=== PATIENT | female | born 1985 | race American Indian/Alaskan Native ===

== ENCOUNTER 2017-11-07 05:24 | Inpatient (IN) | payer MEDICAID ==
[2017-11-07] MEDS ORDERED: Acetaminophen 500 MG Tab PO ONE (06:00)
[2017-11-07] MEDS ORDERED: cefOXitin 2 GM in Premix Bag 1 BAG IV ONE (06:00)
[2017-11-07] MEDS ORDERED: Gabapentin 300 MG Cap PO ONE (06:00)
[2017-11-07] MEDS ORDERED: Scopolamine 1.5 MG Transdermal Patch TOP SCH (06:00)
[2017-11-07] MEDS ORDERED: Celecoxib 200 MG Cap PO ONE (06:00)
[2017-11-07] MEDS ORDERED: Dextrose 5%-Lactated Ringers 1,000 ML IV SCH (06:00)
[2017-11-07] MEDS ORDERED: cefOXitin 2 GM Vial ONE (06:37)
[2017-11-07] MEDS ORDERED: Dexamethasone 4 MG/ML SDV ONE (06:56)
[2017-11-07] MEDS ORDERED: Ondansetron 4 MG/2 ML SDV ONE (06:56)
[2017-11-07] MEDS ORDERED: Propofol 200 MG/20 ML SDV ONE (06:56)
[2017-11-07] MEDS ORDERED: Succinylcholine/Normal Saline 200 MG/10 ML Syringe ONE (06:56)
[2017-11-07] MEDS ORDERED: Neostigmine Methylsulfate 1 MG/ML 5 ML Syringe ONE (06:56)
[2017-11-07] MEDS ORDERED: fentaNYL 250 MCG/5 ML SDV ONE ×2 (06:56→07:43)
[2017-11-07] MEDS ORDERED: Rocuronium 50 MG/5 ML Vial ONE ×2 (06:56→07:50)
[2017-11-07] MEDS ORDERED: FLU Vacc QS 2017-18 (36mos UP)/PF 60 MCG/0.5 ML Syringe IM ONE (07:00)
[2017-11-07] MEDS ORDERED: Lactated Ringers 1,000 ML ONE (07:25)
[2017-11-07] MEDS ORDERED: Lidocaine 2% 100 MG/5 ML Syringe IVPUSH ONE (07:45)
[2017-11-07] MEDS ORDERED: Ketamine 500 MG/5 ML MDV IV SCH (07:45)
[2017-11-07] MEDS ORDERED: Ropivacaine 60 ML, Dexamethasone 8 MG, EPINEPHrine 0.4 MG, Sodium Chloride 0.9% 17.6 ML NERVRT SCH ×4 (07:45)
[2017-11-07] MEDS ORDERED: fentaNYL 100 MCG/2 ML SDV ONE ×2 (08:41→08:57)
[2017-11-07] MEDS ORDERED: hydrOXYzine HCl 100 MG/2 ML SDV IM ONE (09:36)
[2017-11-07] MEDS ORDERED: fentaNYL 100 MCG/2 ML SDV IVPUSH ONE (09:36)
[2017-11-07] MEDS: Lidocaine 0.4%/D5W 2 GM/500 ML BAG IV SCH ×3 (10:30→23:48)
[2017-11-07] MEDS ORDERED: Insulin Aspart 100 Units/ML 3 ML Pen SUBCUT PRN (11:00)
[2017-11-07] MEDS ORDERED: diphenhydrAMINE 50 MG/ML SDV IVPUSH PRN (11:00)
[2017-11-07] MEDS ORDERED: Metoclopramide 10 MG/2 ML SDV IVPUSH PRN (11:00)
[2017-11-07] MEDS ORDERED: hydrOXYzine HCl 100 MG/2 ML SDV IM PRN (11:00)
[2017-11-07] MEDS ORDERED: Labetalol 20 MG/4 ML Syringe IVPUSH PRN (11:00)
[2017-11-07] MEDS ORDERED: Ondansetron 4 MG/2 ML SDV IVPUSH PRN (11:00)
[2017-11-07] MEDS: Pantoprazole 40 MG Vial IVPUSH SCH (11:47)
[2017-11-07] MEDS: cefOXitin 2 GM in Sodium Chloride 0.9% 50 ML IV SCH ×3 (11:48→23:48)
[2017-11-07] MEDS: Gabapentin 250 MG/5 ML Solution ML 470 ML Bottle PO SCH ×2 (14:20→21:18)
[2017-11-07] MEDS: Acetaminophen Soln 650 MG/20.3 ML UD Cup PO SCH ×2 (14:20→20:03)
[2017-11-07] MEDS ORDERED: MVI, Adult with Vitamin K 10 ML, Thiamine 200 MG, Chromium/Copper/Mang/Selen/Zn 1 ML in... IV SCH ×4 (16:00)
[2017-11-07] MEDS: Heparin Sodium 5,000 Units/ML Vial SUBCUT SCH (17:29)
[2017-11-07] MEDS: Dextrose 5%-Lactated Ringers 1,000 ML IV SCH (21:16)
[2017-11-08] MEDS ORDERED: Iohexol 647 MG/ML 50 ML SDV PO STA (02:18)
[2017-11-08] MEDS: Acetaminophen Soln 650 MG/20.3 ML UD Cup PO SCH ×4 (02:50→19:56)
[2017-11-08] MEDS: Dextrose 5%-Lactated Ringers 1,000 ML IV SCH (03:29)
[2017-11-08] MEDS: Heparin Sodium 5,000 Units/ML Vial SUBCUT SCH ×2 (05:15→18:01)
[2017-11-08] MEDS: cefOXitin 2 GM in Sodium Chloride 0.9% 50 ML IV SCH (05:36)
[2017-11-08] MEDS ORDERED: Ondansetron 4 MG Tab.DIS PO PRN (07:18)
[2017-11-08] MEDS ORDERED: Dextrose 5%-Lactated Ringers 1,000 ML IV SCH (07:30)
[2017-11-08] MEDS: Celecoxib 200 MG Cap PO SCH (07:57)
[2017-11-08] MEDS: SCOPOLAMINE PATCH CHECK TOP SCH (08:01)
[2017-11-08] MEDS: Gabapentin 250 MG/5 ML Solution ML 470 ML Bottle PO SCH ×3 (08:01→21:29)
--- NOTE | 2017-11-08 08:45 | CR ---
UGI wo KUB HISTORY: eval R -Y GBP FINDINGS: Limited upper GI series was obtained without fluoroscopy. Water-soluble contrast was admini stered orally. Immediate along with 15 minute delayed images were obtained. Small gastric pouch is de monstrated. Contrast passes readily through the gastrojejunostomy into loops of jejunum. No obstructi on is identified. There is no contrast extravasation. Surgical drain is noted left upper quadrant. IMPRESSION: No postoperative complication identified status post Pastor-en-Y gastric bypass.
[2017-11-08] MEDS ORDERED: FLU Vacc QS 2017-18 (36mos UP)/PF 60 MCG/0.5 ML Syringe IM ONE (10:00)
[2017-11-08] MEDS: Magnesium Sulfate/Water 2 GM in Premix Bag 1 BAG IV SCH ×3 (11:01→21:30)
[2017-11-08] MEDS: Pantoprazole 40 MG Vial IVPUSH SCH (12:04)
[2017-11-08] MEDS ORDERED: MVI, Adult with Vitamin K 10 ML, Thiamine 200 MG, Chromium/Copper/Mang/Selen/Zn 1 ML in... IV SCH ×4 (16:00)
--- NOTE | 2017-11-08 16:57 | PCM.SURGPN ---
- General Info Date of Service: 11/08/17 Date of Surgery/Procedure: 11/07/17 POD#: 1 Post-Op Diagnosis: S/P Roma-en-Y, paraesophageal hernia repair and small bowel resection Admission Diagnosis/Problem: Roma-en-Y gastrojejunostomy Functional Status: Reports: Pain Controlled Pain Score: 4 - Review of Systems General: Reports: No Symptoms HEENT: Reports: No Symptoms Pulmonary: Reports: No Symptoms Cardiovascular: Reports: No Symptoms Gastrointestinal: Reports: Abdominal Pain, Other (No nausea, vomiting, constipation or diarrhea ) Genitourinary: Reports: No Symptoms Neurological: Reports: No Symptoms Psychiatric: Reports: No Symptoms - Patient Data Vitals - Most Recent: Last Vital Signs Temp 36.9 C 11/08/17 15:53 Pulse 78 11/08/17 15:53 Resp 18 11/08/17 15:53 BP 133/73 11/08/17 15:53 Pulse Ox 95 11/08/17 15:53 Weight - Most Recent: 146.692 kg I&O - Last 24 Hours: Intake & Output 11/08/17 11/08/17 11/08/17 06:59 14:59 22:59 Intake Total 1949 1288 50 Output Total 1330 1030 Balance 619 258 50 Lab Results Last 24 Hrs: Laboratory Results - last 24 hr 11/08/17 11/08/17 Range/Units 04:31 04:31 Sodium 141 (140-148) mmol/L Potassium 4.1 (3.6-5.2) mmol/L Chloride 106 (100-108) mmol/L Carbon Dioxide 26 (21-32) mmol/L Anion Gap 9.5 (5.0-14.0) mmol/L BUN 7 (7-18) mg/dL Creatinine 0.7 (0.6-1.0) mg/dL Est Cr Clr Drug Dosing 117.48 mL/min Estimated GFR (MDRD) > 60 (>60) Glucose 142 H (74-106) mg/dL Hemoglobin A1c 5.1 (4.5-6.2) % Calcium 8.4 L (8.5-10.1) mg/dL Phosphorus 2.6 (2.5-4.9) mg/dL Magnesium 1.7 L (1.8-2.4) mg/dL Med Orders - Current: Current Medications Acetaminophen (Tylenol) 650 mg PO Q6H [facility] Last Admin: 11/08/17 14:43 Dose: 650 mg Celecoxib (Celebrex) 200 mg PO DAILY@0800 [facility] Last Admin: 11/08/17 07:57 Dose: 200 mg Cyanocobalamin (Vitamin B12) 1,000 mcg IM ONETIME ONE Stop: 11/09/17 09:01 Diphenhydramine HCl (Benadryl) 25 - 50 mg IVPUSH Q4H PRN PRN Reason: ITCHING Gabapentin (Neurontin) 300 mg PO TID [facility] Last Admin: 11/08/17 14:43 Dose: 300 mg Heparin Sodium (Porcine) (Heparin Sodium) 5,000 units SUBCUT Q12H [facility] Last Admin: 11/08/17 05:15 Dose: 5,000 units Hydroxyzine HCl (Vistaril) 75 - 100 mg IM Q4H PRN PRN Reason: pain Dextrose/Lactated Ringer's (Dextrose 5%-Lactated Ringers) 1,000 mls @ 100 mls/ hr IV ASDIRECTED [facility] Magnesium Sulfate 2 gm/ Premix 50 mls @ 25 mls/hr IV Q6H [facility] Stop: 11/11/17 05:59 Last Admin: 11/08/17 16:46 Dose: 25 mls/hr Multivitamins/Minerals 10 ml/Thiamine HCl 200 mg/ Chromium/Copper/Manganese/ Seleni/Zn 1 ml/ Dextrose/Lactated Ringer's 1,013 mls @ 100 mls/hr IV DAILY@ 1600 [facility] Last Admin: 11/08/17 16:46 Dose: 100 mls/hr Insulin Aspart (Novolog) 0 unit SUBCUT Q6H PRN; Protocol PRN Reason: PER CORRECTIONAL DOSING Labetalol HCl (Normodyne) 5 - 15 mg IVPUSH Q1H PRN PRN Reason: SBP over 160 OR DBP over 95 Metoclopramide HCl (Reglan) 10 mg IVPUSH Q6H PRN PRN Reason: NAUSEA NOT CONTROL BY ZOFRAN Miscellaneous Information (Remove Patch) 1 ea TRDERM ONETIME ONE Stop: 11/09/17 10:01 Scopolamine Patch (Check) 1 each TOP DAILY [facility] Stop: 11/09/17 11:01 Last Admin: 11/08/17 08:01 Dose: Not Given Ondansetron HCl (Zofran) 4 mg IVPUSH Q4H PRN PRN Reason: Nausea/Vomiting Ondansetron HCl (Zofran Odt) 4 mg PO Q4H PRN PRN Reason: Nausea/Vomiting Pantoprazole Sodium (Protonix Iv) 40 mg IVPUSH Q24H [facility] Last Admin: 11/08/17 12:04 Dose: 40 mg Scopolamine (Transderm-Scop) 1.5 mg TOP Q72H [facility] Stop: 11/09/17 10:00 Last Admin: 11/07/17 05:53 Dose: 1.5 mg Discontinued Medications Acetaminophen (Tylenol Extra Strength) 1,000 mg PO ONETIME ONE Stop: 11/07/17 06:01 Last Admin: 11/07/17 05:53 Dose: 1,000 mg Cefoxitin Sodium (Mefoxin) Confirm Administered Dose 2 gm .ROUTE .STK-MED ONE Stop: 11/07/17 06:38 Last Admin: 11/07/17 07:57 Dose: 2 gm Celecoxib (Celebrex) 200 mg PO ONETIME ONE Stop: 11/07/17 06:01 Last Admin: 11/07/17 05:52 Dose: 200 mg Ropivacaine 60 ml/Dexamethasone 8 mg/Epinephrine HCl 0.4 mg/ Sodium Chloride 17.6 ml 0 ml NERVRT ASDIRECTED [facility] Last Admin: 11/07/17 07:42 Dose: 100 syringe Dexamethasone (Dexamethasone) Confirm Administered Dose 4 mg .ROUTE .STK-MED ONE Stop: 11/07/17 06:57 Fentanyl (Sublimaze) Confirm Administered Dose 250 mcg .ROUTE .STK-MED ONE Stop: 11/07/17 06:57 Fentanyl (Sublimaze) Confirm Administered Dose 250 mcg .ROUTE .STK-MED ONE Stop: 11/07/17 07:44 Fentanyl (Sublimaze) Confirm Administered Dose 100 mcg .ROUTE .STK-MED ONE Stop: 11/07/17 08:42 Fentanyl (Sublimaze) Confirm Administered Dose 100 mcg .ROUTE .STK-MED ONE Stop: 11/07/17 08:58 Fentanyl (Sublimaze) 100 mcg IVPUSH ONETIME ONE Stop: 11/07/17 09:37 Last Admin: 11/07/17 09:45 Dose: 100 mcg Gabapentin (Neurontin) 300 mg PO ONETIME ONE Stop: 11/07/17 06:01 Last Admin: 11/07/17 05:53 Dose: 300 mg Glycopyrrolate () Confirm Administered Dose 1 mg .ROUTE .STK-MED ONE Stop: 11/07/17 06:57 Hydroxyzine HCl (Vistaril) 100 mg IM ONETIME ONE Stop: 11/07/17 09:37 Last Admin: 11/07/17 09:46 Dose: 100 mg Cefoxitin Sodium 2 gm/ Premix 20 mls @ 400 mls/hr IV ONETIME ONE Stop: 11/07/17 06:02 Last Admin: 11/07/17 07:03 Dose: 400 mls/hr Dextrose/Lactated Ringer's (Dextrose 5%-Lactated Ringers) 1,000 mls @ 100 mls/ hr IV ASDIRECTED [facility] Last Admin: 11/07/17 06:42 Dose: 100 mls/hr Lidocaine HCl/Dextrose (Lidocaine 2 Gm/D5w 500 Ml) 2 gm in 500 mls @ 30 mls/hr IV .[id number] [facility] PRN Reason: 2 MG/MIN Stop: 11/08/17 10:00 Last Admin: 11/07/17 23:48 Dose: 2 mg/min, 30 mls/hr Ketamine HCl 100 mg/ Sodium (Chloride) 100 mls @ 19.77 mls/hr IV ASDIRECTED [facility] PRN Reason: 5 MCG/KG/MIN Lactated Ringer's (Ringers, Lactated) Confirm Administered Dose 1,000 mls @ as directed .ROUTE .STK-MED ONE Stop: 11/07/17 07:26 Dextrose/Lactated Ringer's (Dextrose 5%-Lactated Ringers) 1,000 mls @ 175 mls/ hr IV ASDIRECTED [facility] Last Admin: 11/08/17 03:29 Dose: 175 mls/hr Multivitamins/Minerals 10 ml/Thiamine HCl 200 mg/ Chromium/Copper/Manganese/ Seleni/Zn 1 ml/ Dextrose/Lactated Ringer's 1,013 mls @ 175 mls/hr IV DAILY@ 1600 [facility] Last Admin: 11/07/17 15:09 Dose: 175 mls/hr Cefoxitin Sodium 2 gm/ Sodium (Chloride) 50 mls @ 100 mls/hr IV Q6H [facility] Stop: 11/08/17 06:59 Last Admin: 11/08/17 05:36 Dose: 100 mls/hr Influenza Virus Vaccine (Fluzone Quad [id number]) 60 mcg IM .ONCE ONE Stop: 11/08/17 10:01 Last Admin: 11/08/17 11:00 Dose: 60 mcg Iohexol (Omnipaque-300) 50 ml PO .ASDIRECTED STA Stop: 11/08/17 02:19 Last Admin: 11/08/17 02:28 Dose: 50 ml Ketamine HCl (Ketalar) 30 mg IV ASDIRECTED [facility] Lidocaine HCl (Xylocaine 2%) 145 mg IVPUSH ONETIME ONE Stop: 11/07/17 07:46 Last Admin: 11/07/17 11:41 Dose: Not Given Neostigmine Methylsulfate (Neostigmine) Confirm Administered Dose 5 mg .ROUTE .STK-MED ONE Stop: 11/07/17 06:57 Ondansetron HCl (Zofran) Confirm Administered Dose 4 mg .ROUTE .STK-MED ONE Stop: 11/07/17 06:57 Propofol (Diprivan 20 Ml) Confirm Administered Dose 200 mg .ROUTE .STK-MED ONE Stop: 11/07/17 06:57 Rocuronium Dawson (Zemuron) Confirm Administered Dose 50 mg .ROUTE .STK-MED ONE Stop: 11/07/17 06:57 Rocuronium Dawson (Zemuron) Confirm Administered Dose 50 mg .ROUTE .STK-MED ONE Stop: 11/07/17 07:51 Succinylcholine Chloride (Succinylcholine In Ns Pf) Confirm Administered Dose 200 mg .ROUTE .STK-MED ONE Stop: 11/07/17 06:57 - Exam Wound/Incisions: Healing Well General: Alert, Oriented, No Acute Distress Neck: Supple, Trachea Midline, No JVD Lungs: Clear to Auscultation Cardiovascular: Regular Rate, Regular Rhythm GI/Abdominal Exam: Soft, No Distention, No Mass (No bowel sounds appreciated. No guarding or rebound tenderness ), Tender Skin: Warm, Dry, Intact Neurological: No New Focal Deficit Psy/Mental Status: Alert, Normal Affect, Normal Mood - Problem List Review Problem List Initiated/Reviewed/Updated: Yes - My Orders Last 24 Hours: Active Orders 24 hr Category Date Time Status Communication Order [RC] ASDIRECTED Care 11/09/17 04:00 Active May Shower [RC] ASDIRECTED Care 11/08/17 07:18 Active Bariatric Diet [DIET] Diet 11/08/17 Breakfast Active Celecoxib [CeleBREX] Med 11/08/17 08:00 Active 200 mg PO DAILY@0800 Cyanocobalamin (Vitamin B12) [Vitamin B12] Med 11/09/17 09:00 Once 1,000 mcg IM ONETIME ONE Dextrose 5%-Lactated Ringers 1,000 ml Med 11/08/17 07:30 Active IV ASDIRECTED Heparin Sodium Med 11/07/17 18:00 Active 5,000 units SUBCUT Q12H [facility], Adult with Vitamin K [Infuvite Adult] 10 ml Med 11/08/17 16:00 Active Thiamine [Vitamin B-1] 200 mg Chromium/Copper/Hair/Selen/Zn [Multitrace-5 Concentrate ] 1 ml Dextrose 5%-Lactated Ringers 1,000 ml IV DAILY@1600 Magnesium Sulfate/Water [Magnesium Sulfate 2 GM in Med 11/08/17 10:00 Active Water 50 ML] 2 gm Premix Bag 1 bag IV Q6H Ondansetron [Zofran ODT] Med 11/08/17 07:18 Active 4 mg PO Q4H PRN Remove Patch Med 11/09/17 10:00 Once 1 ea TRDERM ONETIME ONE Convert IV to Saline Lock [OM.PC] Routine Oth 11/08/17 07:18 Ordered Oral Care [OM.PC] BID Oth 11/08/17 11:00 Ordered Medication Orders Acetaminophen (Tylenol) 650 mg PO Q6H [facility] Last Admin: 11/08/17 14:43 Dose: 650 mg Admin: 11/08/17 07:57 Dose: 650 mg Admin: 11/08/17 02:50 Dose: 650 mg Admin: 11/07/17 20:03 Dose: 650 mg Admin: 11/07/17 14:20 Dose: 650 mg Celecoxib (Celebrex) 200 mg PO DAILY@0800 [facility] Last Admin: 11/08/17 07:57 Dose: 200 mg Cyanocobalamin (Vitamin B12) 1,000 mcg IM ONETIME ONE Stop: 11/09/17 09:01 Diphenhydramine HCl (Benadryl) 25 - 50 mg IVPUSH Q4H PRN PRN Reason: ITCHING Gabapentin (Neurontin) 300 mg PO TID [facility] Last Admin: 11/08/17 14:43 Dose: 300 mg Admin: 11/08/17 08:01 Dose: 300 mg Admin: 11/07/17 21:18 Dose: 300 mg Admin: 11/07/17 14:20 Dose: 300 mg Heparin Sodium (Porcine) (Heparin Sodium) 5,000 units SUBCUT Q12H [facility] Last Admin: 11/08/17 05:15 Dose: 5,000 units Admin: 11/07/17 17:29 Dose: 5,000 units Hydroxyzine HCl (Vistaril) 75 - 100 mg IM Q4H PRN PRN Reason: pain Dextrose/Lactated Ringer's (Dextrose 5%-Lactated Ringers) 1,000 mls @ 100 mls/ hr IV ASDIRECTED [facility] Magnesium Sulfate 2 gm/ Premix 50 mls @ 25 mls/hr IV Q6H [facility] Stop: 11/11/17 05:59 Last Admin: 11/08/17 16:46 Dose: 25 mls/hr Infusion: 11/08/17 13:01 Dose: 25 mls/hr Admin: 11/08/17 11:01 Dose: 25 mls/hr Multivitamins/Minerals 10 ml/Thiamine HCl 200 mg/ Chromium/Copper/Manganese/ Seleni/Zn 1 ml/ Dextrose/Lactated Ringer's 1,013 mls @ 100 mls/hr IV DAILY@ 1600 [facility] Last Admin: 11/08/17 16:46 Dose: 100 mls/hr Insulin Aspart (Novolog) 0 unit SUBCUT Q6H PRN; Protocol PRN Reason: PER CORRECTIONAL DOSING Labetalol HCl (Normodyne) 5 - 15 mg IVPUSH Q1H PRN PRN Reason: SBP over 160 OR DBP over 95 Metoclopramide HCl (Reglan) 10 mg IVPUSH Q6H PRN PRN Reason: NAUSEA NOT CONTROL BY ZOFRAN Miscellaneous Information (Remove Patch) 1 ea TRWAYNEM ONETIME ONE Stop: 11/09/17 10:01 Scopolamine Patch (Check) 1 each TOP DAILY [facility] Stop: 11/09/17 11:01 Last Admin: 11/08/17 08:01 Dose: Not Given Ondansetron HCl (Zofran) 4 mg IVPUSH Q4H PRN PRN Reason: Nausea/Vomiting Ondansetron HCl (Zofran Odt) 4 mg PO Q4H PRN PRN Reason: Nausea/Vomiting Pantoprazole Sodium (Protonix Iv) 40 mg IVPUSH Q24H [facility] Last Admin: 11/08/17 12:04 Dose: 40 mg Admin: 11/07/17 11:47 Dose: 40 mg Scopolamine (Transderm-Scop) 1.5 mg TOP Q72H [facility] Stop: 11/09/17 10:00 Last Admin: 11/07/17 05:53 Dose: 1.5 mg - Plan Plan (Free Text/Narrative):: Fabiola Gonzales is a 31 year old female with a morbid obesity (BMI 49) who is S/P roma-en-y, small bowel resection and closure of her hiatal paraesphogeal hernia. Her pain is under control. She is tolerating her feedings well without nausea or vomiting. She has been unable to pass gas or stool at this point. She has been having some mild tenderness to her abdomen that she currently rates at a 4/10. However, she feels her pain is well controlled with her pain medications. She has no concerns or questions at this time. # Abdominal pain- related to her surgery and incisions. She denied any shoulder pain or severe abdominal pain. She states that she does not feel distended. - Continue Tylenol 650 mg Po Q6hr PRN # Hypomagnesia- per morning labs the patient was found to have a low magnesium at 1.7. Will replace - IV mag sulfate at 25ml/hr Q6hr - will recheck lab at outpatient clinic # Paralytic ileus- there were no bowel sounds appreciated on exam and the patient denied any gas or stool passage. Most likely due to post operative ileus , which should resolve in a day or two. This is exacerbated by her limited step 1 diet due to the gastric bypass. Will make sure she passes gas prior to discharge. An Upper Gi study was done today with was completely benign without any signs of obstruction. Will continue to monitor the patient for increased abdominal pain, fever, intractable vomiting and changes in her progression. E.N.E.R.G.Y protocol - D/c lidocaine today - D/c scopolomine patch today - Continue 300mg POD TID gabapentin - Continue Celebrex 200 mg - Continue IV Protonix 40mg Q24hrs - 1000 mcg B12 - Contiue Infuvite - Dietary consulted, thank you! VTE PPX- 5000 units heparin Q12 hours. Pt advised to continue moving around. Pneumonia PPX- Pt advised to walk around and use incentive spirometry 10 times per hour Code status: full Fluids: 100 ml/hr Diet: Advance pt to step 2 diet Nausea: Zofran Q4hr or [place] Q6hr PRN Dispo: The patient will most likely go home tomorrow pending her progression this evening.
[2017-11-09] MEDS: Acetaminophen Soln 650 MG/20.3 ML UD Cup PO SCH ×2 (02:23→07:12)
[2017-11-09 02:37] VITALS: BP 132/77
[2017-11-09] MEDS: Magnesium Sulfate/Water 2 GM in Premix Bag 1 BAG IV SCH (04:04)
[2017-11-09] MEDS: Heparin Sodium 5,000 Units/ML Vial SUBCUT SCH (05:26)
[2017-11-09] MEDS: Celecoxib 200 MG Cap PO SCH (07:12)
--- NOTE | 2017-11-09 07:27 | PCM.SURGPN ---
- General Info Date of Service: 11/09/17 Date of Surgery/Procedure: 11/07/17 POD#: 2 Post-Op Diagnosis: S/p Roma-En-Y and closure of her paraesophageal hiatal hernia Admission Diagnosis/Problem: Roma-en-Y gastrojejunostomy Functional Status: Reports: Pain Controlled Pain Score: 2 - Review of Systems General: Reports: No Symptoms Pulmonary: Reports: No Symptoms Cardiovascular: Reports: No Symptoms Gastrointestinal: Reports: Abdominal Pain (11/05 ) Genitourinary: Reports: No Symptoms Skin: Reports: No Symptoms Neurological: Reports: No Symptoms - Patient Data Vitals - Most Recent: Last Vital Signs Temp 36.6 C 11/09/17 02:35 Pulse 84 11/09/17 02:35 Resp 16 11/09/17 02:35 BP 132/77 11/09/17 02:35 Pulse Ox 96 11/09/17 02:35 Weight - Most Recent: 146.692 kg I&O - Last 24 Hours: Intake & Output 11/08/17 11/09/17 11/09/17 22:59 06:59 14:59 Intake Total 860 1433 Output Total 400 550 Balance 460 883 Med Orders - Current: Current Medications Acetaminophen (Tylenol) 650 mg PO Q6H [facility] Last Admin: 11/09/17 02:23 Dose: 650 mg Celecoxib (Celebrex) 200 mg PO DAILY@0800 [facility] Last Admin: 11/08/17 07:57 Dose: 200 mg Cyanocobalamin (Vitamin B12) 1,000 mcg IM ONETIME ONE Stop: 11/09/17 09:01 Diphenhydramine HCl (Benadryl) 25 - 50 mg IVPUSH Q4H PRN PRN Reason: ITCHING Gabapentin (Neurontin) 300 mg PO TID [facility] Last Admin: 11/08/17 21:29 Dose: 300 mg Heparin Sodium (Porcine) (Heparin Sodium) 5,000 units SUBCUT Q12H [facility] Last Admin: 11/09/17 05:26 Dose: 5,000 units Hydroxyzine HCl (Vistaril) 75 - 100 mg IM Q4H PRN PRN Reason: pain Dextrose/Lactated Ringer's (Dextrose 5%-Lactated Ringers) 1,000 mls @ 100 mls/ hr IV ASDIRECTED [facility] Last Admin: 11/09/17 02:38 Dose: 100 mls/hr Magnesium Sulfate 2 gm/ Premix 50 mls @ 25 mls/hr IV Q6H [facility] Stop: 11/11/17 05:59 Last Admin: 11/09/17 04:04 Dose: 25 mls/hr Multivitamins/Minerals 10 ml/Thiamine HCl 200 mg/ Chromium/Copper/Manganese/ Seleni/Zn 1 ml/ Dextrose/Lactated Ringer's 1,013 mls @ 100 mls/hr IV DAILY@ 1600 [facility] Last Admin: 11/08/17 16:46 Dose: 100 mls/hr Insulin Aspart (Novolog) 0 unit SUBCUT Q6H PRN; Protocol PRN Reason: PER CORRECTIONAL DOSING Labetalol HCl (Normodyne) 5 - 15 mg IVPUSH Q1H PRN PRN Reason: SBP over 160 OR DBP over 95 Metoclopramide HCl (Reglan) 10 mg IVPUSH Q6H PRN PRN Reason: NAUSEA NOT CONTROL BY ZOFRAN Miscellaneous Information (Remove Patch) 1 ea [place] ONETIME ONE Stop: 11/09/17 10:01 Scopolamine Patch (Check) 1 each TOP DAILY [facility] Stop: 11/09/17 11:01 Last Admin: 11/08/17 08:01 Dose: Not Given Ondansetron HCl (Zofran) 4 mg IVPUSH Q4H PRN PRN Reason: Nausea/Vomiting Ondansetron HCl (Zofran Odt) 4 mg PO Q4H PRN PRN Reason: Nausea/Vomiting Pantoprazole Sodium (Protonix Iv) 40 mg IVPUSH Q24H [facility] Last Admin: 11/08/17 12:04 Dose: 40 mg Scopolamine (Transderm-Scop) 1.5 mg TOP Q72H [facility] Stop: 11/09/17 10:00 Last Admin: 11/07/17 05:53 Dose: 1.5 mg Discontinued Medications Acetaminophen (Tylenol Extra Strength) 1,000 mg PO ONETIME ONE Stop: 11/07/17 06:01 Last Admin: 11/07/17 05:53 Dose: 1,000 mg Cefoxitin Sodium (Mefoxin) Confirm Administered Dose 2 gm .ROUTE .STK-MED ONE Stop: 11/07/17 06:38 Last Admin: 11/07/17 07:57 Dose: 2 gm Celecoxib (Celebrex) 200 mg PO ONETIME ONE Stop: 11/07/17 06:01 Last Admin: 11/07/17 05:52 Dose: 200 mg Ropivacaine 60 ml/Dexamethasone 8 mg/Epinephrine HCl 0.4 mg/ Sodium Chloride 17.6 ml 0 ml NERVRT ASDIRECTED [facility] Last Admin: 11/07/17 07:42 Dose: 100 syringe Dexamethasone (Dexamethasone) Confirm Administered Dose 4 mg .ROUTE .STK-MED ONE Stop: 11/07/17 06:57 Fentanyl (Sublimaze) Confirm Administered Dose 250 mcg .ROUTE .STK-MED ONE Stop: 11/07/17 06:57 Fentanyl (Sublimaze) Confirm Administered Dose 250 mcg .ROUTE .STK-MED ONE Stop: 11/07/17 07:44 Fentanyl (Sublimaze) Confirm Administered Dose 100 mcg .ROUTE .STK-MED ONE Stop: 11/07/17 08:42 Fentanyl (Sublimaze) Confirm Administered Dose 100 mcg .ROUTE .STK-MED ONE Stop: 11/07/17 08:58 Fentanyl (Sublimaze) 100 mcg IVPUSH ONETIME ONE Stop: 11/07/17 09:37 Last Admin: 11/07/17 09:45 Dose: 100 mcg Gabapentin (Neurontin) 300 mg PO ONETIME ONE Stop: 11/07/17 06:01 Last Admin: 11/07/17 05:53 Dose: 300 mg Glycopyrrolate () Confirm Administered Dose 1 mg .ROUTE .STK-MED ONE Stop: 11/07/17 06:57 Hydroxyzine HCl (Vistaril) 100 mg IM ONETIME ONE Stop: 11/07/17 09:37 Last Admin: 11/07/17 09:46 Dose: 100 mg Cefoxitin Sodium 2 gm/ Premix 20 mls @ 400 mls/hr IV ONETIME ONE Stop: 11/07/17 06:02 Last Admin: 11/07/17 07:03 Dose: 400 mls/hr Dextrose/Lactated Ringer's (Dextrose 5%-Lactated Ringers) 1,000 mls @ 100 mls/ hr IV ASDIRECTED [facility] Last Admin: 11/07/17 06:42 Dose: 100 mls/hr Lidocaine HCl/Dextrose (Lidocaine 2 Gm/D5w 500 Ml) 2 gm in 500 mls @ 30 mls/hr IV .[id number] [facility] PRN Reason: 2 MG/MIN Stop: 11/08/17 10:00 Last Admin: 11/07/17 23:48 Dose: 2 mg/min, 30 mls/hr Ketamine HCl 100 mg/ Sodium (Chloride) 100 mls @ 19.77 mls/hr IV ASDIRECTED [facility] PRN Reason: 5 MCG/KG/MIN Lactated Ringer's (Ringers, Lactated) Confirm Administered Dose 1,000 mls @ as directed .ROUTE .STK-MED ONE Stop: 11/07/17 07:26 Dextrose/Lactated Ringer's (Dextrose 5%-Lactated Ringers) 1,000 mls @ 175 mls/ hr IV ASDIRECTED [facility] Last Admin: 11/08/17 03:29 Dose: 175 mls/hr Multivitamins/Minerals 10 ml/Thiamine HCl 200 mg/ Chromium/Copper/Manganese/ Seleni/Zn 1 ml/ Dextrose/Lactated Ringer's 1,013 mls @ 175 mls/hr IV DAILY@ 1600 [facility] Last Admin: 11/07/17 15:09 Dose: 175 mls/hr Cefoxitin Sodium 2 gm/ Sodium (Chloride) 50 mls @ 100 mls/hr IV Q6H [facility] Stop: 11/08/17 06:59 Last Admin: 11/08/17 05:36 Dose: 100 mls/hr Influenza Virus Vaccine (Fluzone Quad [id number]) 60 mcg IM .ONCE ONE Stop: 11/08/17 10:01 Last Admin: 11/08/17 11:00 Dose: 60 mcg Iohexol (Omnipaque-300) 50 ml PO .ASDIRECTED [facility] Stop: 11/08/17 02:19 Last Admin: 11/08/17 02:28 Dose: 50 ml Ketamine HCl (Ketalar) 30 mg IV ASDIRECTED [facility] Lidocaine HCl (Xylocaine 2%) 145 mg IVPUSH ONETIME ONE Stop: 11/07/17 07:46 Last Admin: 11/07/17 11:41 Dose: Not Given Neostigmine Methylsulfate (Neostigmine) Confirm Administered Dose 5 mg .ROUTE .STK-MED ONE Stop: 11/07/17 06:57 Ondansetron HCl (Zofran) Confirm Administered Dose 4 mg .ROUTE .STK-MED ONE Stop: 11/07/17 06:57 Propofol (Diprivan 20 Ml) Confirm Administered Dose 200 mg .ROUTE .STK-MED ONE Stop: 11/07/17 06:57 Rocuronium [place] (Zemuron) Confirm Administered Dose 50 mg .ROUTE .STK-MED ONE Stop: 11/07/17 06:57 Rocuronium [place] (Zemuron) Confirm Administered Dose 50 mg .ROUTE .STK-MED ONE Stop: 11/07/17 07:51 Succinylcholine Chloride (Succinylcholine In Ns Pf) Confirm Administered Dose 200 mg .ROUTE .STK-MED ONE Stop: 11/07/17 06:57 - Exam Wound/Incisions: Healing Well General: Alert, Oriented, Cooperative, No Acute Distress GI/Abdominal Exam: Normal Bowel Sounds (soft but audible), No Distention, No Mass, Tender, Other (no guarding or rebound tenderness) Skin: Warm, Dry, Intact Neurological: No New Focal Deficit Psy/Mental Status: Alert, Normal Affect, Normal Mood - Problem List Review Problem List Initiated/Reviewed/Updated: Yes - My Orders Last 24 Hours: Active Orders 24 hr Category Date Time Status Communication Order [RC] ASDIRECTED Care 11/09/17 04:00 Active May Shower [RC] ASDIRECTED Care 11/08/17 07:18 Active Bariatric Diet [DIET] Diet 11/08/17 Breakfast Active Celecoxib [CeleBREX] Med 11/08/17 08:00 Active 200 mg PO DAILY@0800 Cyanocobalamin (Vitamin B12) [Vitamin B12] Med 11/09/17 09:00 Once 1,000 mcg IM ONETIME ONE Dextrose 5%-Lactated Ringers 1,000 ml Med 11/08/17 07:30 Active IV ASDIRECTED [facility], Adult with Vitamin K [Infuvite Adult] 10 ml Med 11/08/17 16:00 Active Thiamine [Vitamin B-1] 200 mg Chromium/Copper/Hair/Selen/Zn [Multitrace-5 Concentrate ] 1 ml Dextrose 5%-Lactated Ringers 1,000 ml IV DAILY@1600 Magnesium Sulfate/Water [Magnesium Sulfate 2 GM in Med 11/08/17 10:00 Active Water 50 ML] 2 gm Premix Bag 1 bag IV Q6H Ondansetron [Zofran ODT] Med 11/08/17 07:18 Active 4 mg PO Q4H PRN Remove Patch Med 11/09/17 10:00 Once 1 ea TRDERM ONETIME ONE Convert IV to Saline Lock [OM.PC] Routine Oth 11/08/17 07:18 Ordered Oral Care [OM.PC] BID Oth 11/08/17 11:00 Ordered Medication Orders Acetaminophen (Tylenol) 650 mg PO Q6H [facility] Last Admin: 11/09/17 02:23 Dose: 650 mg Admin: 11/08/17 19:56 Dose: 650 mg Admin: 11/08/17 14:43 Dose: 650 mg Admin: 11/08/17 07:57 Dose: 650 mg Admin: 11/08/17 02:50 Dose: 650 mg Admin: 11/07/17 20:03 Dose: 650 mg Admin: 11/07/17 14:20 Dose: 650 mg Celecoxib (Celebrex) 200 mg PO DAILY@0800 [facility] Last Admin: 11/08/17 07:57 Dose: 200 mg Cyanocobalamin (Vitamin B12) 1,000 mcg IM ONETIME ONE Stop: 11/09/17 09:01 Diphenhydramine HCl (Benadryl) 25 - 50 mg IVPUSH Q4H PRN PRN Reason: ITCHING Gabapentin (Neurontin) 300 mg PO TID [facility] Last Admin: 11/08/17 21:29 Dose: 300 mg Admin: 11/08/17 14:43 Dose: 300 mg Admin: 11/08/17 08:01 Dose: 300 mg Admin: 11/07/17 21:18 Dose: 300 mg Admin: 11/07/17 14:20 Dose: 300 mg Heparin Sodium (Porcine) (Heparin Sodium) 5,000 units SUBCUT Q12H [facility] Last Admin: 11/09/17 05:26 Dose: 5,000 units Admin: 11/08/17 18:01 Dose: 5,000 units Admin: 11/08/17 05:15 Dose: 5,000 units Admin: 11/07/17 17:29 Dose: 5,000 units Hydroxyzine HCl (Vistaril) 75 - 100 mg IM Q4H PRN PRN Reason: pain Dextrose/Lactated Ringer's (Dextrose 5%-Lactated Ringers) 1,000 mls @ 100 mls/ hr IV ASDIRECTED [facility] Last Admin: 11/09/17 02:38 Dose: 100 mls/hr Magnesium Sulfate 2 gm/ Premix 50 mls @ 25 mls/hr IV Q6H [facility] Stop: 11/11/17 05:59 Last Admin: 11/09/17 04:04 Dose: 25 mls/hr Infusion: 11/08/17 23:30 Dose: 25 mls/hr Admin: 11/08/17 21:30 Dose: 25 mls/hr Infusion: 11/08/17 18:46 Dose: 25 mls/hr Admin: 11/08/17 16:46 Dose: 25 mls/hr Infusion: 11/08/17 13:01 Dose: 25 mls/hr Admin: 11/08/17 11:01 Dose: 25 mls/hr Multivitamins/Minerals 10 ml/Thiamine HCl 200 mg/ Chromium/Copper/Manganese/ Seleni/Zn 1 ml/ Dextrose/Lactated Ringer's 1,013 mls @ 100 mls/hr IV DAILY@ 1600 [facility] Last Admin: 11/08/17 16:46 Dose: 100 mls/hr Insulin Aspart (Novolog) 0 unit SUBCUT Q6H PRN; Protocol PRN Reason: PER CORRECTIONAL DOSING Labetalol HCl (Normodyne) 5 - 15 mg IVPUSH Q1H PRN PRN Reason: SBP over 160 OR DBP over 95 Metoclopramide HCl (Reglan) 10 mg IVPUSH Q6H PRN PRN Reason: NAUSEA NOT CONTROL BY ZOFRAN Miscellaneous Information (Remove Patch) 1 ea TRDERM ONETIME ONE Stop: 11/09/17 10:01 Scopolamine Patch (Check) 1 each TOP DAILY [facility] Stop: 11/09/17 11:01 Last Admin: 11/08/17 08:01 Dose: Not Given Ondansetron HCl (Zofran) 4 mg IVPUSH Q4H PRN PRN Reason: Nausea/Vomiting Ondansetron HCl (Zofran Odt) 4 mg PO Q4H PRN PRN Reason: Nausea/Vomiting Pantoprazole Sodium (Protonix Iv) 40 mg IVPUSH Q24H [facility] Last Admin: 11/08/17 12:04 Dose: 40 mg Admin: 11/07/17 11:47 Dose: 40 mg Scopolamine (Transderm-Scop) 1.5 mg TOP Q72H [facility] Stop: 11/09/17 10:00 Last Admin: 02/12/18 05:53 Dose: 1.5 mg - Plan Plan (Free Text/Narrative):: Fabiola Gonzales is a 31 year old female with a morbid obesity (BMI 49) who is S/P roma-en-y, small bowel resection and closure of her hiatal paraesphogeal hernia. Her pain is under control. She is tolerating step 2 diet well, without nausea or vomiting. She has been unable to pass gas or stool at this point. She has been having some mild tenderness to her abdomen that she currently rates at a 2/10. However, she feels her pain is well controlled with her pain medications. She has no concerns or questions at this time. She will discharge to home on step 2 diet. She is to follow up in clinic next or Tuesday (-). She is to return with any signs of fever, significant abdominal pain , nausea, vomiting, dysphagia or any other concerns. She should also return if she does not pass gas or stool in the next 3-4 days for concerns of an SBO should be ruled out at that time. # Abdominal pain- related to her surgery and incisions. She denied any shoulder pain or severe abdominal pain. She states that she does not feel distended. - Continue Tylenol 650 mg Po Q6hr PRN # Hypomagnesia- resolved # Paralytic ileus- there were no bowel sounds appreciated on exam and the patient denied any gas or stool passage. Most likely due to post operative ileus , which should resolve today or tomorrow. This is exacerbated by her limited step 2 diet due to the gastric bypass. An Upper Gi study was done yesterday was completely benign without any signs of obstruction. Will continue to monitor the patient for increased abdominal pain, fever, intractable vomiting and changes in her progression. E.N.E.R.G.Y protocol - D/c lidocaine today - D/c scopolomine patch today - Continue 300mg POD TID gabapentin - Continue Celebrex 200 mg - Continue IV Protonix 40mg Q24hrs - 1000 mcg B12 - Contiue Infuvite - Dietary consulted, thank you! VTE PPX- 5000 units heparin Q12 hours. Pt advised to continue moving around. Pneumonia PPX- Pt advised to walk around and use incentive spirometry 10 times per hour Code status: full Fluids: 100 ml/hr Diet: Advance pt to step 2 diet Nausea: Zofran Q4hr or [place] Q6hr PRN Dispo: Discharge patient to home
[2017-11-09] MEDS: Gabapentin 250 MG/5 ML Solution ML 470 ML Bottle PO SCH (08:15)
[2017-11-09] MEDS: SCOPOLAMINE PATCH CHECK TOP SCH (08:15)
[2017-11-09] MEDS ORDERED: Cyanocobalamin (Vitamin B12) 1,000 MCG/ML SDV IM ONE (09:00)
--- NOTE | 2017-11-10 07:55 | DISCH ---
ADMISSION DIAGNOSES: Morbid obesity and history of gestational diabetes. DISCHARGE DIAGNOSES: Laparoscopic Pastor-en-Y gastric bypass surgery, liver biopsy, repair of diaphragmatic hernia, excision of mediastinal lipoma and small bowel resection for morbid obesity, hepatomegaly, diaphragmatic hernia, mediastinal lipoma, small bowel mesentery increased thickening. Date of surgery, 11/07/2017. HISTORY: Fabiola is a pleasant 31-year-old female with longstanding history of morbid obesity and increasing comorbidities. After preoperative evaluation and discussion of possible risks and possible complications, she wished to proceed with surgical procedure. HOSPITAL COURSE: Fabiola had her surgery on 11/07/2017. She had no operative complications. On postop day #1, her upper GI was normal. She was started on a step-2 gastric bypass diet with no cereal. She received dietary instructions and reinforcement of her postop education. On postop day #2, she was able to be discharged to home. Activity was good. Pain was controlled. Vital signs stable and oral intake adequate. PHYSICAL EXAMINATION: GENERAL: Fabiola is a pleasant 31-year-old female. VITAL SIGNS: Height is 5 feet 7.75 inches. Weight is 323 pounds. TPR is 98, 84, 16, and blood pressure 132/77. HEENT: Negative. NECK: Supple. HEART: Regular rate and rhythm. LUNGS: Clear. ABDOMEN: Sutures in place. 4x4 over LUL drain site. Abdominal binder on. EXTREMITIES: Without peripheral edema. DISPOSITION: Discharged to home. CONDITION: Stable and improving. DISCHARGE MEDICATIONS: Followup medications; 1. Tylenol 650 mg q.6 hours scheduled, may be chewable or liquid, for 2 weeks. 2. Celebrex 200 mg p.o. daily for 2 weeks. 3. Zofran ODT 4 mg q.4 hours p.r.n. nausea, #30. FOLLOWUP APPOINTMENT: Monica Jones PA-C, on 11/16/2017 at 1 p.m. DIET: Step-2 gastric bypass diet without cereal until November 24, 2017. ACTIVITY: As tolerated. No lifting greater than 10 pounds. Driving, do not drive for one week. Shower, may shower. Keep operative site clean and dry. Wear abdominal binder for 2 weeks and then as tolerated. DISCHARGE INSTRUCTIONS: Notify provider if any fever, nausea, or vomiting. Special instruction; use incentive spirometer 10 times every hour while awake for 2 weeks.
--- NOTE | 2017-11-15 09:36 | OR ---
DATE OF PROCEDURE: 11/07/2017 PREOPERATIVE DIAGNOSIS: Morbid obesity. POSTOPERATIVE DIAGNOSES: 1. Morbid obesity. 2. Marked hepatomegaly. 3. Paraesophageal diaphragmatic hernia. 4. Mediastinal lipoma. 5. Thickened small bowel mesentery limiting small bowel mobility. PROCEDURES PERFOMED: Diagnostic laparoscopy with: 1. Laparoscopic Pastor-en-Y gastric bypass with long limb gastroenterostomy (24021). 2. Ike-Cut needle liver biopsy (59646). 3. Repair of paraesophageal diaphragmatic hernia (76489). 4. Excision of mediastinal lipoma (23831). 5. Small bowel resection to facilitate adequate mobility of jejunojejunostomy (34792). ANESTHESIA: General. OCEANOGRAPHER GEOLOGICAL: Monica Jones PA-C. INDICATION FOR PROCEDURE: This is a 31-year-old presenting with longstanding morbid obesity and increasingly significant comorbidities. After preoperative evaluation and discussion, she wished to proceed with a gastric bypass procedure. Potential risks of the procedure including bleeding, infection, leaks from various GI tract closures, problems with bowel obstruction over time, as well as possibility of cardiopulmonary, septic, or hemorrhagic complications leading to were discussed, and the patient wishes to proceed. DESCRIPTION OF PROCEDURE: The patient was taken to the operating room and after general endotracheal anesthesia was induced, she was placed in a lithotomy position. The orogastric tube was placed and the abdomen was prepped and draped. At 15 cm inferior, 5 cm left of xiphoid process, transverse incision was made. The peritoneal cavity was entered under direct vision with Optiview trocar, inflated to 15 mmHg pressure with CO2. Using direct visualization of the needle tip within the transversus abdominis muscle plane, bilateral subcostal transversus abdominis plane blocks were placed using standard solution. Following this, 5 additional trocars were placed across the upper and mid abdomen. The patient was noted to have marked hepatomegaly with liver volume being roughly 3 to 4 times normal, liver grossly fatty infiltrated. Ike-Cut needle biopsy was obtained from left lobe of the liver. Minimal bleeding from the biopsy sites was controlled with electrocautery. At this point, the omentum was divided in the midline up to the level of the transverse colon. This allowed identification of small bowel with the ligament of Treitz. The small bowel was then traced out 200 cm distal to that point, where it was divided transversely with a EDEN stapler. The patient was noted to have a very thickened mesentery making the small bowel relatively immobile. To facilitate increased mobility, additional small bowel resection was then accomplished, dividing roughly 10 cm of the biliopancreatic limb at its distal aspect, and the specimen was then delivered from the field. This was accomplished with EDEN stapler and underlying mesentery being divided with a Harmonic scalpel, and this appeared to allow much more mobility of the biliopancreatic limb, which would allow the gastrojejunostomy later in the case to have less tension. At this point, the small bowel was traced out an additional 200 cm where the [id number] enteroenterostomy was accomplished with internal firing of the Endo-EDEN 60 mm stapler. The common opening was then closed transversely with same stapler, angles anastomosed, and mesenteric defect were approximated with some 0 Ethibond stitch, along with 2 mL of fibrin sealant. The divided end of the Pastor limb was then from the mesentery for a few centimeters, which allowed an antecolic mobilization of the distal end of the Pastor limb up to the gastrojejunostomy junction without tension. At this point, the liver was retracted anteriorly. The patient was noted to have a moderate- sized paraesophageal diaphragmatic hernia containing some perigastric fat, a portion of the fundus of the stomach, and a small tongue of omentum. This was reduced. The peritoneum overlying the hernia was incised and reflected downward. During the course of the diaphragmatic hernia, a mediastinal lipoma was encountered, which was excised and sent as separate specimen. The hernia was then repaired anteriorly with 0 Ethibond sutures reinforced with PTFE pledgets. Following this, the gastrointestinal balloon catheter was inflated to 15 mL and pulled snugly up against the EG junction. The gastric wall over the apex of the balloon was then marked with electrocautery and the balloon catheter deflated and pulled up from the esophagus. The lesser omental tissue adjacent to the gastric cardia was then incised, allowing dissection of the area behind the stomach at the level of the cauterized elliott, and the pouch formation was initiated with transverse firing of the EDEN stapler at that level. The pouch was then completed with additional EDEN firings up to and through the angle of His. Upon completion of the pouch, both staple lines were noted to be intact. The anvil of a 25 mm EEA stapler was then attached to a [place] sump type tube. The latter was brought down through the mouth and taken out through a small opening in the gastric pouch, allowing the anvil likewise to be pulled down to within the gastric pouch. The divided end of the Pastor limb was then opened and the main body of the EEA stapler passed several centimeters in the lumen of the small bowel, brought out the anvil, united with it, thus creating the gastrojejunostomy. Upon removal of the stapler, double donuts of mucosa were noted within it. The small bowel was closed off with a vascular staple line. Gastrojejunostomy was reinforced with some 3-0 Vicryl seromuscular stitch, along with fibrin sealant. Leak test was accomplished with injection of 120 mL of air in the gastric pouch while submerged in the cefoxitin-containing saline solution. No leaks were identified. One Dioni-Adams drain was then placed through the left lateral trocar site and positioned adjacent to the gastrojejunostomy and from there up into the area of the splenic fossa. The trocars were then sequentially removed, the peritoneal cavity deflated. Incisions were closed with some 4-0 Vicryl skin stitch and drains affixed with 4-0 Vicryl stitch as well. The patient was taken to the recovery room in satisfactory condition. Physician assistant pressman, Monica Jones, played an essential role in assisting in this case, helping to position the patient, retract structures as needed, as well as suturing and cutting sutures when indicated. Her presence improved patient's safety and decreased the operative time. Isac Gonzales MD /[id number]
== END 2017-11-09 09:54 | disposition home or self-care (01) | DRG 620 ==
LOC: JP.SDS 05:24 → JP.SDSSCHI 05:24 → EDSTATUS 09:00 → JP.2SS 09:50
PROVIDERS: ADMIT Surgery; ATTEND Surgery
PROC: 0D164ZA Bypass Stomach to Jejunum, Percutaneous Endoscopic Approach (ICD-10-PCS; principal; 2017-11-07)
PROC: 0BQT4ZZ Repair Diaphragm, Percutaneous Endoscopic Approach (ICD-10-PCS; 2017-11-07)
PROC: 0WBC4ZX Excision of Mediastinum, Percutaneous Endoscopic Approach, Diagnostic (ICD-10-PCS; 2017-11-07)
PROC: 0FB24ZX Excision of Left Lobe Liver, Percutaneous Endoscopic Approach, Diagnostic (ICD-10-PCS; 2017-11-07)
PROC: 3E0T3BZ Introduction of Anesthetic Agent into Peripheral Nerves and Plexi, Percutaneous Approach (ICD-10-PCS; 2017-11-07)
PROC: 0DB94ZZ Excision of Duodenum, Percutaneous Endoscopic Approach (ICD-10-PCS; 2017-11-07)
DX: E66.01 Morbid (severe) obesity due to excess calories (principal); K44.0 Diaphragmatic hernia with obstruction, without gangrene; Z68.43 Body mass index [BMI] 50.0-59.9, adult; D17.4 Benign lipomatous neoplasm of intrathoracic organs; R16.0 Hepatomegaly, not elsewhere classified; Z23 Encounter for immunization; Z86.32 Personal history of gestational diabetes; M54.5 Low back pain; K59.8 Other specified functional intestinal disorders; K76.0 Fatty (change of) liver, not elsewhere classified
CPT/HCPCS: 36415; 74240; 74240-26; 80048; 81025; 82962; 83036; 83735; 84100; 86850; 86900; 86901; 88304; 88307; 88313; 90686; 94762; A9270-GY; C9113; G0008; J0171; J0694; J1100; J1644; J2001; J2405; J2704; J2795; J3010; J3410; J3411; J3420; J3475; J7030; J7042; J7050; J7120; Q9967

== ENCOUNTER 2018-02-10 21:24 | Emergency (ER) | payer MEDICAID ==
[2018-02-10 22:37] VITALS: BP 132/80
[2018-02-10] MEDS: Sodium Chloride 0.9% 10 ML Syringe FLUSH PRN ×2 (23:14→23:58)
[2018-02-10] MEDS ORDERED: Iopamidol 612 MG/ML 150 ML Bottle IV SCH (23:45)
[2018-02-10] MEDS ORDERED: Sodium Chloride 0.9% 80 ML IV SCH (23:45)
--- NOTE | 2018-02-11 00:45 | EDM.PDOC ---
ED HPI GENERAL MEDICAL PROBLEM - General Chief Complaint: Back Pain or Injury Stated Complaint: LEFT LOWER ABD/LOW BACK PAIN, NAUSEA Time Seen by Provider: 02/10/18 22:30 Source of Information: Reports: Patient History Limitations: Reports: No Limitations - History of Present Illness INITIAL COMMENTS - FREE TEXT/NARRATIVE: This patient complains of left-sided abdominal pain and dry heaves started about 8:30 PM and was sudden. She's been having normal bowel movements is been no fever she denies any kind of dysuria. 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 Other OB/BYN History: cerclage in place Endocrine/Metabolic History: Reports: Obesity/BMI 30+ - Infectious Disease History Infectious Disease History: Reports: Chicken Pox - Past Surgical History HEENT Surgical History: Reports: Other (See Below) Other HEENT Surgeries/Procedures: lump in throat removed in 2nd grade GI Surgical History: Reports: Bariatric Procedure Female Surgical History: Reports: D&C Endocrine Surgical History: Reports: None Dermatological Surgical History: Reports: None Social & Family History - Family History Endocrine/Metabolic: Reports: Diabetes, type II Oncologic: Reports: Thyroid - Tobacco Use Smoking Status *Q: Never Smoker Second Hand Smoke Exposure: No - Caffeine Use Caffeine Use: Reports: None - Recreational Drug Use Recreational Drug Use: No ED ROS GENERAL - Review of Systems Review Of Systems: See Below Constitutional: Reports: No Symptoms HEENT: Reports: No Symptoms Respiratory: Reports: No Symptoms Cardiovascular: Reports: No Symptoms GI/Abdominal: Reports: Other (See history of present illness) : Reports: No Symptoms Musculoskeletal: Reports: No Symptoms Skin: Reports: No Symptoms ED EXAM, GI/ABD - Physical Exam Exam: See Below Exam Limited By: No Limitations General Appearance: Alert, WD/WN, Mild Distress Eyes: Bilateral: Normal Appearance Throat/Mouth: Normal Oropharynx Neck: Supple Respiratory/Chest: Lungs Clear Cardiovascular: Regular Rate, Rhythm GI/Abdominal Exam: Normal Bowel Sounds, Soft, Non-Tender Back Exam: Normal Inspection Extremities: Normal Inspection Neurological: Alert, Oriented Psychiatric: Normal Affect Skin Exam: Warm, Dry Course - Vital Signs Last Recorded V/S: Last Vital Signs Temp 36.6 C 02/10/18 22:35 Pulse 70 02/10/18 22:35 Resp 14 02/10/18 22:35 BP 132/80 02/10/18 22:35 Pulse Ox 97 02/10/18 22:35 - Orders/Labs/Meds Labs: Laboratory Tests 02/10/18 02/10/18 02/10/18 Range/Units 00:10 00:10 23:15 WBC 8.6 (4.5-11.0) K/uL RBC 4.69 (3.30-5.50) M/uL Hgb 14.6 D (12.0-15.0) g/dL Hct 41.5 (36.0-48.0) % MCV 89 (80-98) fL MCH 31 (27-31) pg MCHC 35 (32-36) % Plt Count 223 (150-400) K/uL Neut % (Auto) 78 H (36-66) % Lymph % (Auto) 14 L (24-44) % Ada % (Auto) 7 H (2-6) % Eos % (Auto) 1 L (2-4) % Baso % (Auto) 0 (0-1) % Sodium (140-148) mmol/L Potassium (3.6-5.2) mmol/L Chloride (100-108) mmol/L Carbon Dioxide (21-32) mmol/L Anion Gap (5.0-14.0) mmol/L BUN (7-18) mg/dL Creatinine (0.6-1.0) mg/dL Est Cr Clr Drug Dosing mL/min Estimated GFR (MDRD) (>60) Glucose (74-106) mg/dL Calcium (8.5-10.1) mg/dL Total Bilirubin (0.2-1.0) mg/dL AST (15-37) U/L ALT (12-78) U/L Alkaline Phosphatase (46-116) U/L Total Protein (6.4-8.2) g/dL Albumin (3.4-5.0) g/dL Globulin (2.3-3.5) g/dL Albumin/Globulin Ratio (1.2-2.2) Urine Color Brown Urine Appearance Cloudy Urine pH 6.0 (4.5-8.0) Ur Specific [place] 1.020 (1.008-1.030) Urine Protein Trace (NEGATIVE) mg/dL Urine Glucose (UA) Normal (NEGATIVE) mg/dL Urine Ketones 50 H (NEGATIVE) mg/dL Urine Occult Blood Large (NEGATIVE) Urine Nitrite Negative (NEGATIVE) Urine Bilirubin Small (NEGATIVE) Urine Urobilinogen 4 (NORMAL) mg/dL Ur Leukocyte Esterase Negative (NEGATIVE) Urine RBC >100 H (0-5) Urine WBC 10-20 H (0-5) Ur Epithelial Cells Few Amorphous Sediment Not seen Urine Bacteria Many Urine Mucus Few Urine HCG, Qual Negative 02/10/18 Range/Units 23:15 WBC (4.5-11.0) K/uL RBC (3.30-5.50) M/uL Hgb (12.0-15.0) g/dL Hct (36.0-48.0) % MCV (80-98) fL MCH (27-31) pg MCHC (32-36) % Plt Count (150-400) K/uL Neut % (Auto) (36-66) % Lymph % (Auto) (24-44) % Ada % (Auto) (2-6) % Eos % (Auto) (2-4) % Baso % (Auto) (0-1) % Sodium 143 (140-148) mmol/L Potassium 3.2 L (3.6-5.2) mmol/L Chloride 107 (100-108) mmol/L Carbon Dioxide 26 (21-32) mmol/L Anion Gap 13.2 (5.0-14.0) mmol/L BUN 7 (7-18) mg/dL Creatinine 0.7 (0.6-1.0) mg/dL Est Cr Clr Drug Dosing 113.24 mL/min Estimated GFR (MDRD) > 60 (>60) Glucose 97 (74-106) mg/dL Calcium 8.3 L (8.5-10.1) mg/dL Total Bilirubin 0.8 (0.2-1.0) mg/dL AST 18 (15-37) U/L ALT 27 (12-78) U/L Alkaline Phosphatase 70 (46-116) U/L Total Protein 6.6 (6.4-8.2) g/dL Albumin 3.6 (3.4-5.0) g/dL Globulin 3.0 (2.3-3.5) g/dL Albumin/Globulin Ratio 1.2 (1.2-2.2) Urine Color Urine Appearance Urine pH (4.5-8.0) Ur Specific [place] (1.008-1.030) Urine Protein (NEGATIVE) mg/dL Urine Glucose (UA) (NEGATIVE) mg/dL Urine Ketones (NEGATIVE) mg/dL Urine Occult Blood (NEGATIVE) Urine Nitrite (NEGATIVE) Urine Bilirubin (NEGATIVE) Urine Urobilinogen (NORMAL) mg/dL Ur Leukocyte Esterase (NEGATIVE) Urine RBC (0-5) Urine WBC (0-5) Ur Epithelial Cells Amorphous Sediment Urine Bacteria Urine Mucus Urine HCG, Qual Meds: Medications Discontinued Medications Generic Name Dose Route Start Last Admin Trade Name Freq PRN Reason Stop Dose Admin Sodium Chloride 80 mls @ 3 mls/sec 02/10/18 23:45 02/10/18 23:58 Normal Saline IV 3 mls/sec ASDIRECTED PABLO Administration Iopamidol 150 ml 02/10/18 23:45 02/10/18 23:58 Isovue-300 (61%) IV 150 ml . DIRECTED PABLO Administration Sodium Chloride 10 ml 02/10/18 23:03 02/10/18 23:58 Saline Flush FLUSH 10 ml ASDIRECTED PRN Administration Keep Vein Open - Radiology Interpretation Free Text/Narrative:: abdominal CT shows an 8 mm partially obstructing stone in the proximal left ureter. There is also a small rightadnexal mass Departure - Departure Time of Disposition: 00:42 Disposition: Home, Self-Care 01 Condition: Fair Clinical Impression: Ureterolithiasis - Discharge Information Instructions: Renal Colic, [id number] Referrals: Maude Traore RN [Primary Care Provider] - Forms: ED Department Discharge Additional Instructions: You have a large 8 mm kidney stone in the ureter very close to the left kidney. This is partially blocking the left kidney. It is doubtful that he will be able to pass the stone. You'll need to see the urologist on Tuesday. The urologist from [facility] will be here on Tuesday and will try to arrange an appointment but it would be best for you to call the clinic first thing on Tuesday morning. Mr. to drink a lot of water. For pain take Percocet 5/325, #20 tablets, one or 2 tablets every 4 hours as needed for pain. This is an opiate and can cause sedation and impair driving and actually can be habit-forming if you use it for a long period of time. Take the antibiotic Cipro 500 mg twice daily for 1 week. Also take tamsulosin 0.4 mg 1 tablet daily. This might help a stone to pass. Return to the ER at any time if needed. There is also a cyst in the right adnexa near your ovary. Talk to your doctor about this. You might need an ultrasound.
== END 2018-02-11 01:17 | disposition home or self-care (01) ==
LOC: JP.ED 21:24
DX: N13.2 Hydronephrosis with renal and ureteral calculous obstruction (principal); E66.9 Obesity, unspecified; Z98.84 Bariatric surgery status; Z68.41 Body mass index [BMI] 40.0-44.9, adult
CPT/HCPCS: 36415; 74177; 80053; 81001; 81025; 85025; 99284; J7030; J7050

== ENCOUNTER 2018-02-20 01:13 | Emergency (ER) | payer MEDICAID ==
[2018-02-20 02:00] VITALS: BP 112/74
[2018-02-20] MEDS ORDERED: Ketorolac 60 MG/2 ML SDV IM ONE (02:38)
[2018-02-20] MEDS ORDERED: Ondansetron 4 MG Tab.DIS PO ONE (02:38)
--- NOTE | 2018-02-20 02:41 | EDM.PDOC ---
ED HPI GENERAL MEDICAL PROBLEM - General Chief Complaint: Flank Pain Stated Complaint: LT SIDE/BACK PAIN;HAS A KIDNEY STONE Time Seen by Provider: 02/20/18 02:33 Source of Information: Reports: Patient, Old Records, RN Notes Reviewed History Limitations: Reports: No Limitations - History of Present Illness INITIAL COMMENTS - FREE TEXT/NARRATIVE: 32-year-old female presents to the emergency department with complaint of flank pain, she has a known history of nephrolithiasis 8 mm stone is located in the left ureter she does have an appointment with urology on of this upcoming week. Her biggest issue tonight is the oxycodone she's usually for pain control is not providing significant relief she is also nauseated. 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 Other OB/BYN History: cerclage in place Endocrine/Metabolic History: Reports: Obesity/BMI 30+ - Infectious Disease History Infectious Disease History: Reports: Chicken Pox - Past Surgical History Other HEENT Surgeries/Procedures: lump in throat removed in 2nd grade GI Surgical History: Reports: Bariatric Procedure Female Surgical History: Reports: D&C Endocrine Surgical History: Reports: None Social & Family History - Family History Endocrine/Metabolic: Reports: Diabetes, type II Oncologic: Reports: Thyroid - Tobacco Use Smoking Status *Q: Unknown Ever Smoked - Caffeine Use Caffeine Use: Reports: None ED ROS GENERAL - Review of Systems Review Of Systems: See Below Constitutional: Reports: No Symptoms Respiratory: Reports: No Symptoms Cardiovascular: Reports: No Symptoms GI/Abdominal: Reports: Nausea : Reports: Flank Pain ED EXAM, RENAL/ - Physical Exam Exam: See Below Exam Limited By: No Limitations General Appearance: Alert, WD/WN, Mild Distress Respiratory/Chest: No Respiratory Distress, Lungs Clear, Normal Breath Sounds, No Accessory Muscle Use Cardiovascular: Regular Rate, Rhythm, No Murmur GI/Abdominal: Soft, Tender (Along the left flank) Course - Vital Signs Last Recorded V/S: Last Vital Signs Temp 97.9 F 02/20/18 01:59 Pulse 61 02/20/18 01:59 Resp 15 02/20/18 01:59 BP 112/74 02/20/18 01:59 Pulse Ox 100 02/20/18 01:59 - Orders/Labs/Meds Meds: Medications Discontinued Medications Generic Name Dose Route Start Last Admin Trade Name Kareem PRN Reason Stop Dose Admin Ketorolac Tromethamine 60 mg 02/20/18 02:38 02/20/18 03:14 Toradol IM 02/20/18 02:39 60 mg ONETIME ONE Administration Ondansetron HCl 4 mg 02/20/18 02:38 02/20/18 03:15 Zofran Odt PO 02/20/18 02:39 4 mg ONETIME ONE Administration Departure - Departure Time of Disposition: 03:27 Disposition: Home, Self-Care 01 Condition: Good Clinical Impression: Ureterolithiasis - Discharge Information Referrals: Maude Traore RN [Primary Care Provider] - Forms: ED Department Discharge Additional Instructions: Use Toradol as needed for pain control, use Zofran as needed for nausea and vomiting symptoms follow-up appointment with urology - Assessment/Plan Plan: Assessment Acuity = acute Site and laterality = 8mm nephrolithiasis left side Etiology = nephrolithiasis unclear etiology Manifestations = flank pain, nausea Location of injury = Home Lab values = none Plan She had good relief with 60 mg Toradol IM and 4 mg Zofran, prescription written for ketorolac 10 mg 1 tab by mouth 3 times a day when necessary total #20 and Zofran ODT 4 mg 1 sublingual by mouth 3 times a day when necessary total #5, she has a follow-up appointment with urology at the end of the week This note was dictated using [email or web address] voice recognition software please call with any questions on syntax or grammar.
== END 2018-02-20 03:36 | disposition home or self-care (01) ==
LOC: JP.ED 01:13
DX: N20.2 Calculus of kidney with calculus of ureter (principal)
CPT/HCPCS: 96372; 99283; A9270; J1885

== ENCOUNTER 2021-05-25 22:50 | Inpatient (IN) | payer MEDICAID ==
[2021-05-25] MEDS ORDERED: Ondansetron 4 MG/2 ML SDV IVPUSH ONE (23:16)
[2021-05-25] MEDS ORDERED: Sodium Chloride 0.9% 1,000 ML IV ONE (23:16)
[2021-05-25] MEDS ORDERED: HYDROmorphone 0.5 MG/0.5 ML Syringe IVPUSH ONE (23:16)
--- NOTE | 2021-05-25 23:16 | EDM.PDOC ---
ED HPI GENERAL MEDICAL PROBLEM - General Chief Complaint: Abdominal Pain Stated Complaint: ABDOMINAL PAIN, NAUSEA, SOB Time Seen by Provider: 05/25/21 23:05 Source of Information: Reports: Patient History Limitations: Reports: No Limitations - History of Present Illness INITIAL COMMENTS - FREE TEXT/NARRATIVE: 35-year-old female who had fairly sudden onset of right upper quadrant and epigastric pain 3 hours ago, very intense pain with persistent nausea. Some radiation of pain to her back. She has not had this pain in the past. She thinks she may have had something similar briefly a few days ago but it passed. No diarrhea. No shortness of breath or chest pain. 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 AMERICAN STUDIES PROFESSOR History: cerclage in place Endocrine/Metabolic History: Reports: Obesity/BMI 30+ - Infectious Disease History Infectious Disease History: Reports: Chicken Pox - Past Surgical History HEENT Surgical History: Reports: Other (See Below) Other HEENT Surgeries/Procedures: lump in throat removed in 2nd grade GI Surgical History: Reports: Bariatric Procedure Female Surgical History: Reports: D&C Social & Family History - Family History Endocrine/Metabolic: Reports: Diabetes, type II Oncologic: Reports: Thyroid - Tobacco Use Tobacco Use Status *Q: Never Tobacco User - Caffeine Use Caffeine Use: Reports: None - Recreational Drug Use Recreational Drug Use: No ED ROS GENERAL - Review of Systems Review Of Systems: See Below Constitutional: Reports: Malaise. Denies: Fever, Chills HEENT: Reports: No Symptoms Respiratory: Denies: Shortness of Breath Cardiovascular: Denies: Chest Pain GI/Abdominal: Reports: Abdominal Pain, Nausea, Vomiting Skin: Reports: No Symptoms Neurological: Reports: No Symptoms Psychiatric: Reports: No Symptoms ED EXAM, GI/ABD - Physical Exam Exam: See Below Exam Limited By: No Limitations General Appearance: Alert, Moderate Distress, Other (Very uncomfortable on arrival, nauseated with dry heaving) Eyes: Bilateral: Normal Appearance (No jaundice) Head: Atraumatic Respiratory/Chest: Lungs Clear Cardiovascular: Regular Rate, Rhythm. No: Tachycardia GI/Abdominal Exam: Normal Bowel Sounds, Tender (Extremely tender to palpation across the upper abdomen, especially the right upper quadrant with guarding but equivocal rebound) Back Exam: No: CVA Tenderness (R), CVA Tenderness (L) Extremities: No: Pedal Edema Neurological: Alert, Oriented Psychiatric: Anxious Skin Exam: Warm, Dry Course - Vital Signs Last Recorded V/S: Last Vital Signs Temp 97.9 F 05/26/21 01:10 Pulse 78 05/26/21 01:10 Resp 18 05/26/21 01:10 BP 105/63 05/26/21 01:10 Pulse Ox 99 05/26/21 01:15 - Orders/Labs/Meds Orders: Medication Orders Acetaminophen (Acetaminophen 325 Mg Tab) 650 mg PO Q4H PRN PRN Reason: Pain (Mild 1-3)/fever Albuterol (Albuterol 0.083% 2.5 Mg/3 Ml Neb Soln) 2.5 mg NEB Q4H PRN PRN Reason: Shortness Of Breath/wheezing Albuterol/Ipratropium (Albuterol/Ipratropium 3.0-0.5 Mg/3 Ml Neb Soln) 3 ml NEB QID PRN PRN Reason: Shortness Of Breath/wheezing Hydromorphone HCl (Hydromorphone 0.5 Mg/0.5 Ml Syringe) 0.5 mg IVPUSH Q2H PRN PRN Reason: Abdominal Pain Sodium Chloride (Normal Saline) 1,000 mls @ 125 mls/hr IV ASDIRECTED PABLO Piperacillin Sod/Tazobactam (Sod 4.5 gm/ Sodium Chloride) 100 mls @ 200 mls/hr IV Q6H PABLO Ondansetron HCl (Ondansetron 4 Mg Tab.Dis) 4 mg PO Q6H PRN PRN Reason: Nausea able to take PO Oxycodone HCl (Oxycodone 5 Mg Tab) 5 mg PO Q4H PRN PRN Reason: Pain (moderate 4-6) Pantoprazole Sodium (Pantoprazole 40 Mg Vial) 40 mg IV DAILY PABLO Labs: Laboratory Tests 05/25/21 05/25/21 05/26/21 Range/Units 23:24 23:24 00:01 WBC 8.9 (4.5-11.0) K/uL RBC 3.81 (3.30-5.50) M/uL Hgb 11.1 L D (12.0-15.0) g/dL Hct 33.7 L (36.0-48.0) % MCV 89 (80-98) fL MCH 29 (27-31) pg MCHC 33 (32-36) % Plt Count 272 (150-400) K/uL Neut % (Auto) 64.9 (36-66) % Lymph % (Auto) 24.3 (24-44) % [place] % (Auto) 8.7 H (2-6) % Eos % (Auto) 1.8 L (2-4) % Baso % (Auto) 0.3 (0-1) % Sodium 142 (140-148) mmol/L Potassium 3.5 L (3.6-5.2) mmol/L Chloride 106 (100-108) mmol/L Carbon Dioxide 27 (21-32) mmol/L Anion Gap 12.5 (5.0-14.0) mmol/L BUN 11 D (7-18) mg/dL Creatinine 0.6 (0.6-1.0) mg/dL Est Cr Clr Drug Dosing 130.87 mL/min Estimated GFR (MDRD) > 60 (>60) Glucose 102 (74-106) mg/dL Calcium 7.7 L (8.5-10.1) mg/dL Total Bilirubin 0.5 (0.2-1.0) mg/dL AST 398 H D (15-37) U/L ALT 154 H (12-78) U/L Alkaline Phosphatase 199 H D (46-116) U/L C-Reactive Protein 0.07 (0.0-0.3) mg/dL Total Protein 6.0 L (6.4-8.2) g/dL Albumin 3.0 L (3.4-5.0) g/dL Globulin 3.0 (2.3-3.5) g/dL Albumin/Globulin Ratio 1.0 L (1.2-2.2) Lipase 185 (73-393) U/L Meds: Medications Generic Name Dose Route Start Last Admin Trade Name Kareem PRN Reason Stop Dose Admin Acetaminophen 650 mg 05/26/21 00:52 Acetaminophen 325 Mg Tab PO Q4H PRN Pain (Mild 1-3)/fever Albuterol 2.5 mg 05/26/21 00:52 Albuterol 0.083% 2.5 Mg/3 Ml Neb Soln NEB Q4H PRN Shortness Of Breath/wheezing Albuterol/Ipratropium 3 ml 05/26/21 00:52 Albuterol/Ipratropium 3.0-0.5 Mg/3 Ml Neb Soln NEB QID PRN Shortness Of Breath/wheezing Hydromorphone HCl 0.5 mg 05/26/21 00:52 Hydromorphone 0.5 Mg/0.5 Ml Syringe IVPUSH Q2H PRN Abdominal Pain Sodium Chloride 1,000 mls @ 125 mls/hr 05/26/21 00:52 Normal Saline IV ASDIRECTED PABLO Piperacillin Sod/Tazobactam 100 mls @ 200 mls/hr 05/26/21 00:52 Sod 4.5 gm/ Sodium Chloride IV Q6H PABLO Ondansetron HCl 4 mg 05/26/21 00:52 Ondansetron 4 Mg Tab.Dis PO Q6H PRN Nausea able to take PO Oxycodone HCl 5 mg 05/26/21 00:52 Oxycodone 5 Mg Tab PO Q4H PRN Pain (moderate 4-6) Pantoprazole Sodium 40 mg 05/26/21 00:52 Pantoprazole 40 Mg Vial IV DAILY PABLO Discontinued Medications Generic Name Dose Route Start Last Admin Trade Name Kareem PRN Reason Stop Dose Admin Hydromorphone HCl 0.5 mg 05/25/21 23:16 05/25/21 23:29 Hydromorphone 0.5 Mg/0.5 Ml Syringe IVPUSH 05/25/21 23:17 0.5 mg ONETIME ONE Administration Sodium Chloride 1,000 mls @ 999 mls/hr 05/25/21 23:16 05/25/21 23:29 Normal Saline IV 05/26/21 00:16 999 mls/hr ONETIME ONE Administration Ondansetron HCl 4 mg 05/25/21 23:16 08/30/21 23:29 Ondansetron 4 Mg/2 Ml Sdv IVPUSH 05/25/21 23:17 4 mg ONETIME ONE Administration - Re-Assessments/Exams Free Text/Narrative Re-Assessment/Exam: 05/25/21 23:59 CBC CMP lipase were obtained. An IV was started and the patient was given 0.5 mg of IV Dilaudid and 4 mg of IV Zofran. AST ALT and alkaline phosphatase all returned elevated, her last levels were normal. Lipase was normal, white count was normal. She still had an making ache in her upper abdomen but the pain was improved. A [id number] ultrasound showed an enlarged gallbladder with numerous layered stones and a markedly positive Galdamez sign. I am going to asked the hospitalist service to admit the patient for hydration, pain control, IV antibiotics, formal ultrasound and surgical consultation in the morning. Departure - Departure Time of Disposition: 01:04 Disposition: Admitted As Inpatient 67 Clinical Impression: Cholecystitis Abdominal pain Qualifiers: Abdominal location: upper abdomen, unspecified Qualified Code(s): R10.10 - Upper abdominal pain, unspecified - Discharge Information Sepsis Event Note (ED) - Focused Exam Vital Signs: Vital Signs Temp Pulse Resp BP Pulse Ox 05/26/21 00:00 87 16 98/60 100 05/25/21 23:16 97.5 F 55 L 16 98/53 L 100 05/25/21 23:04 97.3 F 55 L 16 98/53 L 100
[2021-05-26] MEDS ORDERED: HYDROmorphone 0.5 MG/0.5 ML Syringe IVPUSH PRN ×2 (00:52→16:00)
[2021-05-26] MEDS ORDERED: Acetaminophen 325 MG Tab PO PRN (00:52)
[2021-05-26] MEDS ORDERED: Albuterol/Ipratropium 3.0-0.5 MG/3 ML Neb Soln NEB PRN (00:52)
[2021-05-26] MEDS ORDERED: Ondansetron 4 MG Tab.DIS PO PRN (00:52)
[2021-05-26] MEDS ORDERED: Albuterol 0.083% 2.5 MG/3 ML Neb Soln NEB PRN (00:52)
[2021-05-26] MEDS ORDERED: oxyCODONE 5 MG Tab PO PRN (00:52)
[2021-05-26] MEDS ORDERED: Pantoprazole 40 MG Vial IV SCH (00:52)
--- NOTE | 2021-05-26 00:54 | PCM.HP.2 ---
H&P History of Present Illness - General Date of Service: 05/25/21 Admit Problem/Dx: Admission Diagnosis/Problem Admission Diagnosis/Problem Abdominal pain Source of Information: Patient, Provider, RN History Limitations: Reports: No Limitations - History of Present Illness Initial Comments - Free Text/Narative: chief complaint: abdominal pain This is a 35 year old female presents to the ER with sudden onset of abdominal pain at 8:30 pm., reports last meal at 5:30 pm. of cheese tortellini and sausage. Pain was acute, constant with pain rating of 10/10. ER course shows elevated Liver Function Test, negative bili, normal lipase. Ultrasound quick scan shows multi stones in right upper quadrant of abdomen with positive Galdamez sign. discussed admission for pain control and ultrasound of abdomen in am. Surgical consult as indicated. Onset of Symptoms: Reports: Today Symptom Onset Date: 05/25/21 Symptom Onset Time: 20:30 Duration of Symptoms: Reports: Hour(s):, Improving (after given Dilaudid 0.5 mg in ER) Location: Reports: Abdomen Quality: Reports: Sharp, Stabbing (rates pain 10/10) Severity: Severe Improves with: Reports: None Worsens with: Reports: None Associated Symptoms: Reports: Loss of Appetite, Nausea/Vomiting Upper Abdomen Pain Score (Numeric/FACES): 10 - Related Data Allergies/Adverse Reactions: Allergies Allergy/AdvReac Type Severity Reaction Status Date / Time No Known Allergies Allergy Verified 05/25/21 23:06 Home Medications: Home Meds NK [No Known Home Meds] 05/25/21 [History] Past Medical History Genitourinary History: Reports: Renal Calculus [employer] History: Reports: , Therapeutic Other OB/BYN History: cerclage in place Endocrine/Metabolic History: Reports: Obesity/BMI 30+ - Infectious Disease History Infectious Disease History: Reports: Chicken Pox - Past Surgical History HEENT Surgical History: Reports: Other (See Below) Other HEENT Surgeries/Procedures: lump in throat removed in 2nd grade GI Surgical History: Reports: Bariatric Procedure Female Surgical History: Reports: D&C Social & Family History - Family History Endocrine/Metabolic: Reports: Diabetes, type II Oncologic: Reports: Thyroid - Tobacco Use Tobacco Use Status *Q: Never Tobacco User - Caffeine Use Caffeine Use: Reports: None - Recreational Drug Use Recreational Drug Use: No - Living Situation & Occupation Living situation: Reports: Occupation: Employed (employed by [employer], has one son age 6 years. lives in [place], [place].) H&P Review of Systems - Review of Systems: Review Of Systems: See Below General: Reports: Malaise, Other (sudden onset of abdominal pain-constant, sharp, resolved with ER intervention- medication) HEENT: Reports: No Symptoms Pulmonary: Reports: No Symptoms Cardiovascular: Reports: No Symptoms Gastrointestinal: Reports: Abdominal Pain Genitourinary: Reports: No Symptoms, Other (current menses) Musculoskeletal: Reports: No Symptoms Skin: Reports: No Symptoms Psychiatric: Reports: No Symptoms Neurological: Reports: No Symptoms Hematologic/Lymphatic: Reports: No Symptoms Immunologic: Reports: No Symptoms Exam - Exam Exam: See Below - Vital Signs Vital Signs: Last Vital Signs Temp 97.5 F 05/25/21 23:16 Pulse 87 05/26/21 00:00 Resp 16 05/26/21 00:00 BP 98/60 05/26/21 00:00 Pulse Ox 100 05/26/21 00:00 Weight: 213 lb 6.519 oz - Exam General: Alert, Oriented, Cooperative, Other (neat and well groomed, pleasant, female. no distress at this time) HEENT: PERRLA, Hearing Intact, Mucosa Moist & [place], Nares Patent, Normal Nasal Septum, Posterior Pharynx Clear, Conjunctiva Clear, EOMI, EACs Clear, TMs Clear Neck: Supple, Trachea Midline, 2 Lungs: Clear to Auscultation Cardiovascular: Regular Rate, Regular Rhythm GI/Abdominal Exam: Normal Bowel Sounds, Soft, No Organomegaly, No Distention, No Abnormal Bruit, No Mass, Pelvis Stable, Guarding (right upper quadrant with palpation), Tender (right upper quadrant) (Female) Exam: Deferred Rectal (Female) Exam: Deferred Extremities: Normal Inspection, Normal Range of Motion, Non-Tender, No Pedal Edema, Normal Capillary Refill Peripheral Pulses: 2+: Radial (L), Radial (R), Dorsalis Pedis (L), Dorsalis Pedis (R) Skin: Warm, Dry, Intact Neurological: Cranial Nerves Intact, Reflexes Equal Bilateral Neuro Extensive - Mental Status: Alert, Oriented x3, Normal Mood/Affect, Normal Cognition Neuro Extensive - Motor, Sensory, Reflexes: CN II-XII Intact, Normal Gait, Normal Reflexes Psychiatric: Alert, Normal Affect, Normal Mood - Patient Data Lab Results Last 24 hrs: Laboratory Results - last 24 hr 05/25/21 05/25/21 Range/Units 23:24 23:24 WBC 8.9 (4.5-11.0) K/uL RBC 3.81 (3.30-5.50) M/uL Hgb 11.1 L D (12.0-15.0) g/dL Hct 33.7 L (36.0-48.0) % MCV 89 (80-98) fL MCH 29 (27-31) pg MCHC 33 (32-36) % Plt Count 272 (150-400) K/uL Neut % (Auto) 64.9 (36-66) % Lymph % (Auto) 24.3 (24-44) % [place] % (Auto) 8.7 H (2-6) % Eos % (Auto) 1.8 L (2-4) % Baso % (Auto) 0.3 (0-1) % Sodium 142 (140-148) mmol/L Potassium 3.5 L (3.6-5.2) mmol/L Chloride 106 (100-108) mmol/L Carbon Dioxide 27 (21-32) mmol/L Anion Gap 12.5 (5.0-14.0) mmol/L BUN 11 D (7-18) mg/dL Creatinine 0.6 (0.6-1.0) mg/dL Est Cr Clr Drug Dosing 130.87 mL/min Estimated GFR (MDRD) > 60 (>60) Glucose 102 (74-106) mg/dL Calcium 7.7 L (8.5-10.1) mg/dL Total Bilirubin 0.5 (0.2-1.0) mg/dL AST 398 H D (15-37) U/L ALT 154 H (12-78) U/L Alkaline Phosphatase 199 H D (46-116) U/L Total Protein 6.0 L (6.4-8.2) g/dL Albumin 3.0 L (3.4-5.0) g/dL Globulin 3.0 (2.3-3.5) g/dL Albumin/Globulin Ratio 1.0 L (1.2-2.2) Lipase 185 (73-393) U/L Result Diagrams: 05/25/21 23:24 05/25/21 23:24 Sepsis Event Note - Focused Exam Vital Signs: Vital Signs Temp Pulse Resp BP Pulse Ox 05/26/21 00:00 87 16 98/60 100 05/25/21 23:16 97.5 F 55 L 16 98/53 L 100 05/25/21 23:04 97.3 F 55 L 16 98/53 L 100 - Problem List (1) Abdominal pain SNOMED Code(s): 63001356 ICD Code: R10.9 - UNSPECIFIED ABDOMINAL PAIN Status: Acute Priority: High Current Visit: Yes Qualifiers: Abdominal location: right upper quadrant Qualified Code(s): R10.11 - Right upper quadrant pain (2) Status post gastric bypass for obesity SNOMED Code(s): 971473051, 012260065, 453161138, 623548301 ICD Code: Z98.84 - BARIATRIC SURGERY STATUS Status: Chronic Priority: Low Current Visit: Yes Problem List Initiated/Reviewed/Updated: Yes Orders Last 24hrs: Active Orders 24 hr Category Date Time Status Patient Status Manage Transfer [TRANSFER] Routine ADT 05/26/21 00:27 Active CORONAVIRUS COVID-19 RAPID [MOLEC] Urgent Lab 05/26/21 00:21 Ordered Resuscitation Status Routine Resus Stat 05/26/21 00:28 Ordered Assessment/Plan Comment:: ASSESSMENT / PLAN chief complaint: abdominal pain This is a 35 year old female presents to the ER with sudden onset of abdominal pain at 8:30 pm., reports last meal at 5:30 pm. of cheese tortellini and s ausage. Pain was acute, constant with pain rating of 10/10. Similar abdominal pain 4 to 5 days ago which resolved on its own. Past history of Gastric Bypass by Dr. Gonzales. ER course shows elevated Liver Function Test AST 398, ALT 154, alk phos 199, negative bili, normal lipase 185. Ultrasound quick scan shows multi stones in right upper quadrant of abdomen with positive Galdamez sign. discussed admission for pain control and ultrasound of abdomen in am. Surgical consult as indicated. Patient agrees with plan of care. Abdominal pain- abdominal pain 3 hours after eating evening meal, she reports has a similar episode last or Tuesday which resolved on its own. -Admit to [address] [place] [address] for further monitoring -NPO -IV Fluids Normal Saline at 125 mL per hour -IV Zosyn every 6 hours -IV Dilaudid 0.5 mg every 2 hours for pain control -anti nausea medication ordered -Advise to notify nurses of any fever or worsen pain -surgical consult as indicated -Covid test pending -a.m. abdominal ultrasound History of Gastric Bypass -B vitamin supplement -consult to Dr. Isac Gonzales as indicated Maintenance issues -Orders home meds - no chronic medication -Nutrition: NPO -Kline catheter not indicated at this time -DVT: SCD -PPI- IV Protonix 40mg daily CODE STATUS: FULL Admission status: Admit to [address] [place] [address] This Patient is Admitted for Inpatient Services and is Medically Appropriate and Meets Medical Necessity for Inpatient Admission. I Reasonably Expect the Patient will Require Inpatient Services that Span a Period of Over 2 Midnights. My Rationale for Medically Necessary Inpatient Care will be Found in the Admission History & Physical and Progress Notes. I Reasonably Expect the Patient to be Discharged or Transferred within 96 Hours After Admission to this [facility]. Disposition: home Primary care provider: Dr. Maude Traore, [facility] Hospitalist: Dr. Fung - Mortality Measure Prognosis:: Good
[2021-05-26] MEDS: Sodium Chloride 0.9% 1,000 ML IV SCH ×2 (01:30→10:01)
[2021-05-26] MEDS: Piperacillin/Tazobactam 4.5 GM in Sodium Chloride 0.9% 100 ML IV SCH ×2 (01:43→06:30)
--- NOTE | 2021-05-26 09:26 | US ---
Abdomen Comp CLINICAL HISTORY: Abdominal pain COMPARISON: CT 2018. FINDINGS: The liver is free of mass or biliary dilatation. There is normal parenchymal echogenicity. There are multiple tiny stones in the gallbladder. The common duct measures 3 mm. The pancreas shows no mass or inflammatory change. Right kidney measures 11.5 0.3 x 5.2 cm. Cortical thickness is 1.6 cm. Left kidney measures 11.4 x 6.1 x 5.8 cm. Cortical thickness is 1.6 cm..The aorta is not aneurysmal. The inferior vena cava is unremarkable. The spleen has a normal size shape and echotexture. IMPRESSION: Cholelithiasis with no biliary dilatation
[2021-05-26] MEDS ORDERED: fentaNYL 250 MCG/5 ML SDV ONE (10:36)
[2021-05-26] MEDS ORDERED: Dexamethasone 4 MG/ML SDV ONE (10:37)
[2021-05-26] MEDS ORDERED: Rocuronium 50 MG/5 ML Vial ONE (10:37)
[2021-05-26] MEDS ORDERED: Succinylcholine 200 MG/10 ML MDV ONE (10:37)
[2021-05-26] MEDS ORDERED: Neostigmine Methylsulfate 1 MG/ML 5 ML Syringe ONE (10:37)
[2021-05-26] MEDS ORDERED: Glycopyrrolate 0.2 MG/ML 5 ML MDV ONE (10:37)
[2021-05-26] MEDS ORDERED: Ondansetron 4 MG/2 ML SDV ONE (10:37)
[2021-05-26] MEDS ORDERED: Propofol 200 MG/20 ML SDV ONE (10:37)
[2021-05-26] MEDS ORDERED: Bupivacaine 0.5%/EPINEPHrine 1:200,000 50 ML MDV ONE (11:54)
[2021-05-26] MEDS ORDERED: Piperacillin/Tazobactam/Dext 4.5 GM in Premix Bag 1 BAG IV SCH (12:30)
[2021-05-26] MEDS ORDERED: fentaNYL 100 MCG/2 ML SDV ONE ×2 (13:44→13:48)
[2021-05-26] MEDS ORDERED: Lactated Ringers 1,000 ML ONE (14:09)
[2021-05-26] MEDS ORDERED: hydrOXYzine HCL 100 MG/2 ML SDV IM ONE (14:33)
[2021-05-26] MEDS ORDERED: Ondansetron 4 MG/2 ML SDV IVPUSH PRN (16:00)
[2021-05-26] MEDS ORDERED: HYDROmorphone 1 MG/ML Syringe IV PRN (16:00)
[2021-05-26] MEDS: oxyCODONE 5 MG Tab PO PRN ×2 (16:24→21:05)
[2021-05-26] MEDS: Acetaminophen 500 MG Tab PO SCH ×2 (16:24→21:06)
[2021-05-26] MEDS ORDERED: MVI, Adult with Vitamin K 10 ML, Zinc/Copper/Manganese/Selenium 1 ML in Dextrose 5%-Lac... IV ONE ×3 (17:00)
[2021-05-26] MEDS: cefOXitin 2 GM in Sodium Chloride 0.9% 50 ML IV SCH (17:18)
[2021-05-26] MEDS ORDERED: Sodium Ferric Gluconate Cmplex 250 MG in Sodium Chloride 0.9% 100 ML IV ONE (18:00)
[2021-05-26] MEDS: Pantoprazole 40 MG Vial IV SCH (21:06)
[2021-05-27] MEDS: oxyCODONE 5 MG Tab PO PRN ×2 (01:18→05:01)
[2021-05-27] MEDS: Acetaminophen 500 MG Tab PO SCH ×4 (05:00→20:59)
[2021-05-27] MEDS: cefOXitin 2 GM in Sodium Chloride 0.9% 50 ML IV SCH ×5 (05:01→17:15)
[2021-05-27] MEDS: Dextrose 5%-Lactated Ringers 1,000 ML IV SCH (06:06)
[2021-05-27] MEDS: HYDROmorphone 2 MG Tab PO PRN ×4 (09:22→22:45)
[2021-05-27] MEDS ORDERED: Sodium Ferric Gluconate Cmplex 250 MG in Sodium Chloride 0.9% 100 ML IV ONE (10:00)
--- NOTE | 2021-05-27 10:13 | PN ---
DATE OF SERVICE: 05/27/2021 SUBJECTIVE: Fabiola is postop day #1. She has had persistent nausea. Liver function tests remain elevated. LUL put out 35 mL of a serosanguineous drainage. She has no questions or concerns today. OBJECTIVE: GENERAL: Fabiola is a pleasant 35-year-old female. She is resting in bed. VITAL SIGNS: TPR is 96.5, 53, 18, blood pressure 108/70. HEENT: Negative. NECK: Supple. HEART: Regular rate and rhythm. LUNGS: Clear. ABDOMEN: Dressings dry and intact. LUL drain intact. EXTREMITIES: Without peripheral edema. ASSESSMENT: Diagnostic laparoscopy with: 1. Cholecystectomy. 2. Repair of incarcerated incisional hernia. 3. Persistent nausea. 4. Elevated liver function tests. POSTOPERATIVE DIAGNOSIS: Subacute/chronic cholecystitis and cholelithiasis, incarcerated umbilical hernia. Date of procedure: 05/26/2021. Surgeon: Isac Gonzales MD. PLAN: 1. Dilaudid 2 mg q.4 hours p.r.n. pain. 2. Regular diet to advance as tolerated. Order already written. 3. Check CBC, CMP in a.m. 4. We will evaluate p.r.n. or in a.m. Monica Jones PA-C /[id number]
[2021-05-27] MEDS: Pantoprazole 40 MG Vial IV SCH (20:08)
[2021-05-28] MEDS: Dextrose 5%-Lactated Ringers 1,000 ML IV SCH (03:21)
[2021-05-28] MEDS: Acetaminophen 500 MG Tab PO SCH ×2 (05:01→09:25)
[2021-05-28] MEDS: cefOXitin 2 GM in Sodium Chloride 0.9% 50 ML IV SCH ×3 (05:01)
[2021-05-28] MEDS: HYDROmorphone 2 MG Tab PO PRN (09:25)
[2021-05-28 10:27] VITALS: BP 102/66; PULSE 72
--- NOTE | 2021-05-31 12:55 | PN ---
DATE OF SERVICE: 05/26/2021 The patient was admitted overnight with a history of right upper quadrant pain. Found to have normal liver function test otherwise and normal bilirubin and amylase. Quick scan ultrasound showed stones in the right upper quadrant and positive Galdamez sign. The patient will have a formal ultrasound this morning, and if that confirms the cholecystitis, we will proceed with a laparoscopic cholecystectomy later today. We will confirm this after the ultrasound has been completed. Isac Gonzales MD /[id number]
--- NOTE | 2021-05-31 12:55 | DISCH ---
FINAL DIAGNOSES: 1. Subacute and chronic cholecystitis and cholelithiasis. 2. Postoperative pneumonia. 3. Bariatric surgery status. 4. Hypokalemia. 5. Incarcerated umbilical hernia. 6. Iron deficiency status. OPERATIVE PROCEDURES: Done on 05/26, diagnostic laparoscopy with: 1. Cholecystectomy. 2. Repair of incarcerated umbilical hernia. SUMMARY: This is a 35-year-old presenting with acute abdominal pain. She was admitted overnight to the emergency room and was found to have cholelithiasis on subsequent ultrasound along with a thickened gallbladder wall, and on the date of admission, the patient underwent a laparoscopic cholecystectomy along with repair of the incarcerated umbilical hernia. Postoperatively, she had some elevation in her alkaline phosphatase and had some nausea and there was some question of whether or not it would be a common bile duct stone. The nausea is now cleared and the bilirubin remains normal, alkaline phosphatase falling toward normal, so I suspect if she had a stone, it is probably passed. Her stones were very tiny, so they probably would pass nonetheless. Labs running showed a somewhat low potassium and we will give her 1 month supply of potassium chloride 20 mEq. Otherwise, home medications will include Tylenol 1 g p.o. q.6 hours p.r.n., Dilaudid 2 mg p.o. q.6 hours p.r.n. pain #12, potassium chloride 20 mEq p.o. daily x30 days, and we will send her home with 2 doses of milk of magnesia. She will be on a regular diet. Follow up with Monica Jones will be at [facility] on 06/05/2021. One additional note on this patient is that she had a low iron level with ferritin of 20 and she received 2 doses of iron gluconate 250 mg during the course of the hospitalization. /[id number]
--- NOTE | 2021-06-03 13:56 | OR ---
DATE OF PROCEDURE: 05/26/2021 SURGEON: Iasc Gonzales MD PREOPERATIVE DIAGNOSIS: Subacute and chronic cholecystitis and cholelithiasis. POSTOPERATIVE DIAGNOSES: 1. Subacute and chronic cholecystitis and cholelithiasis. 2. Incarcerated umbilical hernia. OPERATIVE PROCEDURE: Diagnostic laparoscopy with: 1. Cholecystectomy (71426). 2. Repair of incarcerated umbilical hernia (30001). ANESTHESIA: General. INDICATION FOR PROCEDURE: A 35-year-old female presenting with intense biliary colic overnight and found to have cholelithiasis along with a thickened gallbladder. The plan is to proceed with a laparoscopic cholecystectomy. Potential risks including bleeding, infection, injury to underlying viscera such as common bile duct, possible migration of stones in the common bile duct requiring additional procedures for correction were all reviewed with the patient, and she wishes to proceed. DETAILS OF PROCEDURE: The patient was taken to the operating room and placed in a supine position. After general endotracheal anesthesia was induced, she was converted to a lithotomy position and the abdomen prepped and draped. In the epigastrium, a transverse incision was made, and the peritoneal cavity was entered under direct vision with an Optiview trocar and inflated to 15 mmHg pressure with CO2. Laparoscope was then reinserted. No underlying trocar insertion site injuries were seen. Following this, the patient was noted to have an incarcerated umbilical hernia. An incision just below the umbilical crease was then made and carried down through the skin and subcutaneous tissue, and a 12-mm trocar was then brought through the hernia, thus reducing what appeared to be some incarcerated preperitoneal fat during the course of that placement. One additional 5 mm trocar was then placed in the right subcostal area. Bilateral transversus abdominis plane blocks were placed. The gallbladder was retracted anteriorly and laterally. The gallbladder was noted to be quite edematous and subacutely inflamed. The dissection began on the gallbladder neck and continued around the gallbladder neck and cystic duct junction. Once that area was well delineated, it was divided with a EDEN stanford load. The adjacent cystic artery had previously also been identified. This was clipped 3 times proximally, once distally, and divided with Harmonic scalpel. The gallbladder was then dissected off the gallbladder bed using Harmonic scalpel and delivered through the epigastric trocar site. This contained a multitude of small stones. Attention was then taken to repair of the umbilical hernia. The camera port was brought up to the epigastric site, and using a suture passer, the umbilical hernia was then closed with 0 Vicryl sutures placed by means of a suture passer, closing this with a transverse orientation. The incarcerated components remained outside of the hernia repair, and these were then tied. Following this, a Dioni-Adams drain was taken through the right subcostal trocar site and placed in the area of the gallbladder bed and the remaining trocars removed and the peritoneal cavity deflated. Incisions were closed with some 4-0 Vicryl stitch, and the patient was taken to the recovery room in satisfactory condition. Isac Gonzales MD /[id number]
== END 2021-05-28 10:51 | disposition home or self-care (01) | DRG 418 ==
LOC: JP.ED 22:50 → JP.MS 05-26 00:27
PROVIDERS: ADMIT Hospitalist; ATTEND Surgery
PROC: 0FT44ZZ Resection of Gallbladder, Percutaneous Endoscopic Approach (ICD-10-PCS; principal; 2021-05-26)
PROC: 0WQF4ZZ Repair Abdominal Wall, Percutaneous Endoscopic Approach (ICD-10-PCS; 2021-05-26)
PROC: 07BB4ZZ Excision of Mesenteric Lymphatic, Percutaneous Endoscopic Approach (ICD-10-PCS; 2021-05-26)
DX: K80.12 Calculus of gallbladder with acute and chronic cholecystitis without obstruction (principal); J95.89 Other postprocedural complications and disorders of respiratory system, not elsewhere classified; K42.0 Umbilical hernia with obstruction, without gangrene; Z98.84 Bariatric surgery status; E87.6 Hypokalemia; E61.1 Iron deficiency; E66.9 Obesity, unspecified
CPT/HCPCS: 36415; 76700; 76700-26; 80053; 81001; 81025; 82247; 82728; 83690; 84075; 85025; 85027; 86140; 88304; 88305; 96374; 96375; 99285-25; A9270-GY; C9113; J0171; J0330; J0694; J1100; J1170; J2405; J2543; J2704; J2710; J2795; J2916; J3010; J3410; J3490; J7030; J7120; J7121

== ENCOUNTER 2022-12-16 20:22 | Emergency (ER) | payer MEDICAID ==
[2022-12-16 20:41] VITALS: BP 104/59; PULSE 78
[2022-12-16 21:38] LABS: ESTIMATED GFR 125 mL/min (>60)
[2022-12-16] MEDS: Methocarbamol 500 MG Tab PO ONE (22:15)
[2022-12-16] MEDS: Ketorolac 30 MG/ML SDV IM ONE (22:15)
[2022-12-16] MEDS: HYDROmorphone 0.5 MG/0.5 ML Syringe IVPUSH ONE (22:28)
== END 2022-12-16 23:01 | disposition home or self-care (01) ==
LOC: JP.ED 20:22
DX: S39.012A Strain of muscle, fascia and tendon of lower back, initial encounter (principal); R10.9 Unspecified abdominal pain; E66.9 Obesity, unspecified; Z68.34 Body mass index [BMI] 34.0-34.9, adult; X50.0XXA Overexertion from strenuous movement or load, initial encounter
CPT/HCPCS: 36415; 80053; 81001; 83690; 85025; 86140; 96372; 99283; A9270; J1885